=== PATIENT | male | born 1935 | race Caucasian/White ===

== ENCOUNTER 2016-10-03 13:27 | Outpatient (CLI) | payer MEDICARE ==
[2016-10-03 14:02] LABS: Bilirubin Negative (Negative); Blood, Urine Trace (Negative); Glucose, Urine (Dipstick) Negative (Negative); Ketone, Urine Negative (Negative); Nitrite Negative (Negative); Protein, Urine (Dipstick) Negative (Neg-Trace); Urobilinogen 0.2 mg/dL (0.2-1.0)
[2016-10-03 14:08] LABS: RBC/HPF 0-3 HPF (0-3)
[2016-10-03 14:09] LABS: Bacteria/HPF Rare-Few HPF (None Seen); Squamous Epithelial None Seen HPF (0-3); WBC/HPF 0-3 HPF (0-3)
== END 2016-10-03 13:28 | disposition home or self-care (01) ==
LOC: NAVSJIPCSP 13:27
PROVIDERS: ATTEND Internal Medicine
DX: N30.00 Acute cystitis without hematuria (principal)
CPT/HCPCS: 81003; 81015; 87086

== ENCOUNTER 2016-10-04 18:28 | Inpatient (IN) | payer MEDICARE ==
[2016-10-04 19:37] LABS: #Basophils 0.1 thou/uL (0.0-0.2); #Lymphocytes 1.1 thou/uL (1.20-3.40); #Monocytes 0.7 thou/uL (0.11-0.59); #Neutrophils 6.7 thou/uL (1.40-6.50); %Basophils 0.7 % (0.0-1.0); %Eosinophils 0.3 % (0.0-10.0); %Lymphocytes 12.3 % (21.0-51.0); %Monocytes 7.6 % (0.0-10.0); Hematocrit 44.3 % (42.0-52.0); Mean Platelet Volume 6.8 fL (7.4-10.4); Red Blood Cell (RBC) Count 4.45 mill/uL (4.70-6.10); White Blood Cell (WBC) Count 8.5 thou/uL (4.8-10.8)
[2016-10-04] MEDS ORDERED: Sodium Chloride 0.9% 500 ML ONE ×2 (19:48→20:51)
[2016-10-04] MEDS ORDERED: Acetaminophen 500 MG TAB ONE (19:48)
[2016-10-04 19:53] LABS: ALT (SGPT) 18 U/L (0-55); AST (SGOT) 20 U/L (5-34); Alkaline Phosphatase 47 U/L (40-150); Anion Gap 13 mmol/L (10-20); BUN (Urea Nitrogen) 27 mg/dL (8.4-25.7); CK (CPK) 139 U/L (30-200); Calc. Creatinine Clearance 0 mL/min (70-130); Calcium 9.1 mg/dL (7.8-10.44); Carbon Dioxide 22 mmol/L (23-31); Chloride 107 mmol/L (98-107); Estimated GFR-MDRD 43; Globulin 3.3 g/dL (2.4-3.5); Lipase 13 U/L (8-78); Protein, Total 7.4 g/dL (5.8-8.1); Troponin I 0.032 ng/mL (< 0.028)
[2016-10-04 20:36] LABS: Bilirubin Negative (Negative); Blood, Urine Trace (Negative); Glucose, Urine (Dipstick) Negative (Negative); Ketone, Urine Trace mg/dL (Negative); Nitrite Negative (Negative); Protein, Urine (Dipstick) Negative (Neg-Trace); Urobilinogen 0.2 mg/dL (0.2-1.0)
[2016-10-04 20:45] LABS: RBC/HPF 0-3 HPF (0-3); Squamous Epithelial 0-3 HPF (0-3)
--- NOTE | 2016-10-04 20:58 | RAD ---
SINGLE VIEW OF THE CHEST: COMPARISON: 04/23/2014 HISTORY: Generalized weakness that began yesterday and fever. FINDINGS: Single view of the chest shows a normal sized cardiomediastinal silhouette. There is no evidence of consolidation, mass, or pleural effusion. The bones are unremarkable. IMPRESSION: No evidence of acute cardiopulmonary disease. POS: [facility]
[2016-10-04] MEDS ORDERED: cefTRIAXone\\ROCEPHIN 1 GM VIAL ONE (21:14)
[2016-10-04] MEDS ORDERED: Sodium Chloride 0.9% 0 ML ONE (21:14)
[2016-10-04] MEDS ORDERED: Sodium Chloride 0.9% 100 ML ONE (21:15)
[2016-10-04] MEDS ORDERED: Sodium Chloride 0.9% 1,000 ML IV SCH (22:00)
--- NOTE | 2016-10-04 22:32 | ERRECORD ---
[facility] EMERGENCY RECORD HPI WEAK-DIZZY (19:01 JL) CHIEF COMPLAINT: Patient presents for evaluation of weakness, Patient presents for evaluation of PT with generalized weakness starting yesterday. Normally able to 'shuffle around' per family but unable to get out of bed today. Pt reports some dizziness earlier that resolved. HISTORIAN: History provided by patient. LOCATION: Symptoms are generalized. QUALITY: Symptoms described as, generalized weakness, Patient is alert and oriented to person, place and time, [place] coma score is 15, Pt did have trouble remembering the day of the week which family thought might be new. TIME COURSE: Patient unable to describe onset of symptoms, Symptoms are worsening, are constant. ASSOCIATED WITH: No associated chest pain, Associated with chills, Associated with fever, Measured maximum temperature 101 to 101.9 degrees, No associated headache, No associated nausea, No associated vomiting, No associated upper respiratory infection. EXACERBATED BY: Patient's condition exacerbated by nothing. RELIEVED BY: Patient's condition relieved by nothing, Patient's condition relieved by nothing because patient has not tried anything for relief. ROS (19:04 JL) CONSTITUTIONAL: Historian reports chills, reports fever. EYES: Historian denies eye pain, denies eye redness, denies eye discharge. ENT: Historian reports rhinorrhea, denies sore throat. CARDIOVASCULAR: Historian denies chest pain. RESPIRATORY: Historian denies shortness of breath, denies sputum. minimal cough today. GI: Historian denies abdominal pain, denies diarrhea, denies nausea, denies vomiting. GENITOURINARY MALE: Historian denies dysuria, denies hematuria. MUSCULOSKELETAL: Historian denies back pain, denies neck pain. SKIN: Historian denies rash, denies skin changes. NEUROLOGIC: Historian denies dizziness, denies headache, denies paralysis, denies paresthesias, denies sensory changes. PAST MEDICAL HISTORY MEDICAL HISTORY: Notes: DAUGHTER BROUGHT IN BECAUSE OF " FEVER 101 AND FEELS DIZZY" REPORTS WEAKNESS, DIFFICULTY AMBULATING INDEPENDENTLY WHICH IS NORM., Flu vaccine up to date, Tetanus immunization up to date, Pneumococcal vaccine up to date, Past medical history includes cardiac history, congestive heart failure, Past medical history includes history of hypertension, which has been treated, Past medical history includes neurological disease, Parkinson's disease, possibly but not under medication for it. (diagnosis was inconclusive 1 year ago). (18:51 BDON) &a-1R&a+25V*p+0X*[id number]*c202B*c15G*c2P*p-0X&a-25V&a+1R Name: Sumeet Singleton : 1935 M81 MedRec: [id number] AcctNum: [id number] Prepared: SunOct 04, 2016 22:34 by Interface Page 1 of 4 pMD [facility] EMERGENCY RECORD MALE SURGICAL HISTORY: Patient has no surgical history. (18:51 BDON) PSYCHIATRIC HISTORY: Notes: NO PSYCHIATRIC HISTORY. (18:51 BDON) SOCIAL HISTORY: Patient denies alcohol use, Patient denies drug use, Patient has no smoking history, Lives at home. (18:51 BDON) NOTES: Nursing records reviewed, Agree with nursing records. (19:05 [facility]) KNOWN ALLERGIES No Known Drug Allergies CURRENT MEDICATIONS (19:16 [facility]) Xarelto: TABLET : Strength - 15 mg : ORAL Patient Dose: once a day. meTOPROLOL tartrate: TABLET : Strength - 25 mg : ORAL Patient Dose: 2 times a day. simvastatin: TABLET : Strength - 20 mg : ORAL Patient Dose: once a day. digoxin: TABLET : Strength - 125 mcg : ORAL Patient Dose: once a day. Azilect: TABLET : Strength - 1 mg : ORAL Patient Dose: once a day. VITAL SIGNS VITAL SIGNS: BP: `139/77 (Lying), Pulse: 103 (Irregular), Resp: 18 (Non-Labored), Temp: 99.3 (Axillary), Pain: 0, O2 sat: 97 on Room Air, Time: 10/04/2016 18:37. (18:37 BDON) Temp: 101.2 (Rectal), Time: 10/04/2016 19:06. (19:06 JNOL) BP: 99/56, Pulse: 96, Resp: 20, O2 sat: 98 on Room Air, Time: 10/04/2016 20:30. (20:30 KASA) BP: 103/53, Pulse: 96, O2 sat: 96 on Room Air, Time: 10/04/2016 21:00. (21:00 KASA) BP: 127/51, Pulse: 115, Resp: 21, O2 sat: 97 on Room Air, Time: 10/04/2016 20:01. (20:01 KASA) BP: 103/53, Pulse: 96, Resp: 15, Temp: 99.3 (Oral), Pain: 0, O2 sat: 96 on Room Air, Time: 10/04/2016 21:00. (21:00 KASA) PHYSICAL EXAM (19:04 [facility]) CONSTITUTIONAL: Vital signs reviewed, Patient appears non toxic, Patient alert and oriented to person, place and time. EYES: Eye exam included findings of eyelids normal to inspection, Pupils equally round and reactive to light, Conjunctiva normal. ENT: Pharynx exam normal, Uvula exam normal, Tonsil exam normal, &a-1R&a+25V*p+0X*[id number]*c202B*c15G*c2P*p-0X&a-25V&a+1R Name: Sumeet Singleton : 1935 M81 MedRec: [id number] AcctNum: [id number] Prepared: SunOct 04, 2016 22:34 by Interface Page 2 of 4 pMD [facility] EMERGENCY RECORD Mouth exam normal, mucous membranes moist. NECK: Neck exam included findings of normal range of motion, Trachea midline, no cervical adenopathy. RESPIRATORY CHEST: Respiratory exam included findings of no respiratory distress, Breath sounds clear, No wheezing, No rales, No rhonchi, Chest exam included findings of chest movement symmetrical. CARDIOVASCULAR: Cardiovascular exam included findings of, rate tachycardic, rhythm regular, Heart sounds normal. ABDOMEN MALE: Abdominal exam included findings of abdomen nontender, Bowel sounds normal. BACK: Back exam included findings of normal inspection. UPPER EXTREMITY: Upper extremity exam included findings of inspection normal, Radial pulse normal, no cyanosis, no clubbing, no edema. LOWER EXTREMITY: Lower extremity exam included findings of inspection normal, no edema, no calf tenderness. NEURO: John coma scale 15, Neuro exam findings include patient oriented to person, place and time, Speech normal. SKIN: Skin exam included findings of skin warm, dry, and normal in color, no rash. PSYCHIATRIC: Normal affect. MEDICATION ADMINISTRATION SUMMARY Drug Name: *sodium chloride 0.9 % intravenous, Dose Ordered: 500 mL, Route: IV Fluid Infusion, Status: Given, Time: 20:52 10/04/2016, Drug Name: *sodium chloride 0.9 % intravenous, Dose Ordered: 500 mL, Route: IV Fluid Infusion, Status: Given, Time: 19:50 10/04/2016, Drug Name: acetaminophen oral, Dose Ordered: 1000 mg, Route: Oral, Status: Given, Time: 19:49 10/04/2016, *Additional information available in notes, Detailed record available in Medication Service section. PROBLEM LIST No recorded problems DIAGNOSIS (22:19 KAREN) FINAL: PRIMARY: Fever, ADDITIONAL: DEHYDRATION. PRESCRIPTION No recorded prescriptions DISPOSITION PATIENT: Disposition Type: Admit, Disposition: [facility]. (22:19 KAREN) Patient left the department. (22:28 SHERLY) [place]: ANDREW=KENN Vega, Arely JONES=MD Pedro, Gatito DAS=KENN Sheffield, Rabia &a-1R&a+25V*p+0X*[id number]*c202B*c15G*c2P*p-0X&a-25V&a+1R Name: Sumeet Singleton : 1935 M81 MedRec: [id number] AcctNum: [id number] Prepared: SunOct 04, 2016 22:34 by Interface Page 3 of 4 pMD [facility] EMERGENCY RECORD MYESHA=KENN Anderson, Adina DUBOIS=KENN Patel, Todd &a-1R&a+25V*p+0X*[id number]*c202B*c15G*c2P*p-0X&a-25V&a+1R Name: Sumeet Singleton : 1935 M81 MedRec: [id number] AcctNum: [id number] Prepared: SunOct 04, 2016 22:34 by Interface Page 4 of 4 pMD MTDD
--- NOTE | 2016-10-04 22:36 | PICIS ---
[facility] EMERGENCY RECORD TRIAGE (18:51 BDON) PATIENT: NAME: Sumeet Singleton, AGE: 81, GENDER: male, : Sat 1935, TIME OF GREET: SunOct 04, 2016 18:29, PREFERRED LANGUAGE: Irish, RACE: WHITE, ETHNICITY: Not or , ECODE BILLING MAP: [facility] ER, SSN: [id number], Zip Code: [address], KG WEIGHT: 83.91 (est.), HEIGHT/LENGTH: 182.88cm, BMI: 25.09, PHONE: , , , PERSON ID: [id number], PCP: Hebert DAVIDSON LUKE. (18:51 BDON) TRIAGE NOTES: alert but sluggish male patient presents with fever and "feel bad" since yesterday afternoon. (18:51 BDON) COMPLAINT: FEVER. (18:51 BDON) ADMISSION: URGENCY: 3 Urgent, ADMISSION SOURCE: Home, TRANSPORT: CAR, BED: ER -04. (18:51 BDON) ASSESSMENT: Assessment: pt. presents requiring assistance to ambulance and to stretcher. Is cooperative but reports feeling "bad" and weak., Symptoms began 10/03/2016 18:44, Symptoms began yesterday. (18:51 BDON) PAIN: Location denies pain. (18:51 BDON) IMMUNIZATIONS: Flu vaccine up to date, Date of immunization: current, Tetanus immunization up to date, Date of immunization: current, Pneumococcal vaccine up to date. (18:51 BDON) SIRS SCORING: Heart Rate 110-139 (2), Temp range 96.8-101.1 (0), respiratory rate 12-24 (0), Latest WBC 3-14.9 (0), Mental Status altered: no (0), Total SIRS Score 2, Infection or Suspected Infection: No, was at Dr. Davidson's office yesterday for same. Suspected UTI but UA was negative. (18:51 BDON) PROVIDERS: TRIAGE NURSE: Arely Vega RN, ATTENDING PHYSICIAN: Gatito Vasquez MD. (18:51 BDON) VITAL SIGNS: BP `139/77, (Lying), Pulse 103, (Irregular), Resp 18, (Non-Labored), Temp 99.3, (Axillary), Pain 0, O2 Sat 97, on Room Air, Time 10/04/2016 18:37. (18:37 BDON) PREVIOUS VISIT ALLERGIES: No Known Drug Allergies. (18:51 BDON) KNOWN ALLERGIES No Known Drug Allergies CURRENT MEDICATIONS (19:16 LEE) Xarelto: TABLET : Strength - 15 mg : ORAL Patient Dose: once a day. meTOPROLOL tartrate: TABLET : Strength - 25 mg : ORAL Patient Dose: 2 times a day. simvastatin: TABLET : Strength - 20 mg : ORAL Patient Dose: once a day. digoxin: TABLET : Strength - 125 mcg : ORAL Patient Dose: once a day. &a-1R&a+25V*p+0X*k7610N*c202B*c15G*c2P*p-0X&a-25V&a+1R Name: Sumeet Singleton : 1935 M81 MedRec: [id number] AcctNum: [id number] Prepared: SunOct 04, 2016 22:40 by Interface Page 1 of 12 pMD [facility] EMERGENCY RECORD Azilect: TABLET : Strength - 1 mg : ORAL Patient Dose: once a day. VITAL SIGNS VITAL SIGNS: BP: `139/77 (Lying), Pulse: 103 (Irregular), Resp: 18 (Non-Labored), Temp: 99.3 (Axillary), Pain: 0, O2 sat: 97 on Room Air, Time: 10/04/2016 18:37. (18:37 BDON) Temp: 101.2 (Rectal), Time: 10/04/2016 19:06. (19:06 JNOL) BP: 99/56, Pulse: 96, Resp: 20, O2 sat: 98 on Room Air, Time: 10/04/2016 20:30. (20:30 KASA) BP: 103/53, Pulse: 96, O2 sat: 96 on Room Air, Time: 10/04/2016 21:00. (21:00 KASA) BP: 127/51, Pulse: 115, Resp: 21, O2 sat: 97 on Room Air, Time: 10/04/2016 20:01. (20:01 KASA) BP: 103/53, Pulse: 96, Resp: 15, Temp: 99.3 (Oral), Pain: 0, O2 sat: 96 on Room Air, Time: 10/04/2016 21:00. (21:00 KASA) NURSING ASSESSMENT: FALL RISK (21:02 KASA) FALL RISK: Use of level of consciousness altering agents with mentation or cognitive changes (3), Sensory deficits (1), Impaired mobility (3), Elimination problems (3), Total score 10, Fall risk. NURSING ASSESSMENT: RESPIRATORY /CHEST (18:53 JNOL) CONSTITUTIONAL: Patient arrives, via hospital wheelchair, Unsteady gait, Inability to ambulate, History obtained from, family member: daughter, Patient appears, generally ill, Patient cooperative, Patient alert, Oriented to person, place and time, Skin warm, Skin dry, Skin normal in color, Mucous membranes pink, Mucous membranes moist, Patient is well-groomed. PAIN: Patient rates pain as 0 out of 10. RESPIRATORY/CHEST: Breath sounds clear, Respiratory assessment findings include respiratory effort easy, Respirations regular, Conversing normally, Neck and chest exam findings include trachea midline, Chest expansion equal, Chest movement symmetrical, no signs of distress, no retractions noted, no cyanosis, no jugular vein distension, no tenderness to palpation, no crepitus noted, no subcutaneous emphysema noted, no deformity noted, Associated with cough, non-productive, Associated with fever, no associated fume exposure. ENT: Ear assessment findings include ear normal to inspection, Nasal assessment findings include nose normal to inspection, Sinuses normal, Nasal mucosa normal, Discharge, thin, from bilateral nare, Congestion, bilaterally, Mouth and throat assessment findings include mouth inspection normal, Uvula normal, Tonsils normal, Mucous membranes pink, and moist, Able to swallow, Speech normal, Associated with fever. &a-1R&a+25V*p+0X*k7963C*c202B*c15G*c2P*p-0X&a-25V&a+1R Name: Sumeet Singleton : 1935 M81 MedRec: [id number] AcctNum: [id number] Prepared: SunOct 04, 2016 22:40 by Interface Page 2 of 12 pMD [facility] EMERGENCY RECORD NURSING ASSESSMENT: SKIN (18:55 JNOL) SKIN: Skin assessment findings include skin warm, Skin dry, Skin normal in color, Notes: Redness with peeling skin noted to sacaral area. NURSING PROCEDURE: BEDSIDE RADIOLOGY (19:08 KHER) PATIENT IDENTIFIER: Patient actively involved in identification process. BEDSIDE RADIOLOGY: Bedside radiology performed by CRISTIAN, Portable chest x-ray performed. NURSING PROCEDURE: BEDSIDE SIRS TESTING (21:01 KASA) SCORES: Heart Rate 55-109 (0), Temp range 101.2-102.0 (1), respiratory rate 12-24 (0), Latest WBC 3-14.9 (0), Mental status altered: yes (1), Total SIRS Score 2. NURSING PROCEDURE: BROADCASTER (18:55 JNOL) BROADCASTER: Patient placed on cardiac surgeon, Patient placed on non-invasive blood pressure monitor, Patient placed on continuous pulse oximetry. NURSING PROCEDURE: EKG CHART (19:01 JNOL) EK lead EKG performed on the left chest, done by KENN Oconnor, first EKG. FOLLOW-UP: After procedure, EKG for interpretation given to Dr. Vasquez. NURSING PROCEDURE: ENT (20:00 KASA) PATIENT IDENTIFIER: Patient actively involved in identification process, Patient's identity verified by patient stating name, Patient's identity verified by patient stating date. ENT: ENT care indicated for specimen collection, Nasal swab collected, labeled in the presence of the patient and sent to lab for testing of, influenza A, influenza B, collected by KENN Holden. FOLLOW-UP: After procedure, no further bleeding from nose. SAFETY: Side rails up, Cart/Stretcher in lowest position, Call light within reach, Hospital ID band on. NURSING PROCEDURE: IV PATIENT IDENITIFIER: Patient actively involved in identification process, Patient's identity verified by patient stating name, Patient's identity verified by patient stating date. (19:17 KASA) IV SITE 1: IV established, in two attempts, Unable to obtain IV access. (18:55 JNOL) IV therapy indicated for hydration, IV therapy indicated for medication administration, IV established, to the right antecubital, using a 20 gauge catheter, in one attempt, IV site prepped with chloraprep, &a-1R&a+25V*p+0X*c8258E*c202B*c15G*c2P*p-0X&a-25V&a+1R Name: Sumeet Singleton : 1935 M81 MedRec: [id number] AcctNum: [id number] Prepared: SunOct 04, 2016 22:40 by Interface Page 3 of 12 pMD [facility] EMERGENCY RECORD Saline lock established, Flushed with normal saline (mls): 10, Labs drawn at time of placement, labeled in the presence of the patient and sent to lab, Blood cultures drawn at time of placement, labeled in the presence of the patient and sent to lab. (19:17 KASA) FOLLOW-UP SITE 1: After procedure, sterile transparent dressing applied. (19:17 KASA) SAFETY: Side rails up, Cart/Stretcher in lowest position, Family at bedside, Call light within reach, Hospital ID band on. (19:17 KASA) NURSING PROCEDURE: LAB DRAW (19:38 KASA) PATIENT IDENTIFIER: Patient actively involved in identification process, Patient's identity verified by patient stating name, Patient's identity verified by patient stating date. LAB DRAW: Lab draw indicated for obtaining specimens for evaluation, Initial lab draw performed, by venipuncture, from left hand, in one attempt, Blood cultures labeled in the presence of the patient and sent to lab. FOLLOW-UP: After procedure, dressing applied to site, After procedure, no swelling at site, After procedure, no active bleeding from site. SAFETY: Side rails up, Cart/Stretcher in lowest position, Family at bedside, Call light within reach, Hospital ID band on. NURSING PROCEDURE: NURSE NOTES NURSES NOTES: Notes: ERMD at bedside. (18:55 JNOL) Notes: Report given to KENN Holden. Patient on cardiac surgeon, left in position of comfort. Patient's daughter outside of room on phone. (19:04 JNOL) NURSING PROCEDURE: URINE COLLECTION (20:09 KASA) PATIENT IDENTIFIER: Patient actively involved in identification process, Patient's identity verified by patient stating name, Patient's identity verified by patient stating date. URINE COLLECTION MALE: Urine collected by void, output amount (mL) 100, urine yellow in color, and clear, Specimen labeled in the presence of the patient and sent to lab, Specimen obtained for culture labeled in the presence of the patient and sent to lab. SAFETY: Side rails up, Cart/Stretcher in lowest position, Call light within reach, Hospital ID band on. ORDER DETAILS Order Name: BROADCASTER ED, Status: Done, Time: 19:04 10/04/2016, User: PIPPA, - Ordered for: MD Vasquez Joshua, - Entered by: MD Vasquez Joshua - SunOct 04, 2016 19:01, - Quantity: 1, Order Name: Cardiac Profile w/CKMB & Troponin - I, Status: Active, Time: 19:10/04/2016, User: KAREN, &a-1R&a+25V*p+0X*s4117Y*c202B*c15G*c2P*p-0X&a-25V&a+1R Name: Sumeet Singleton : 1935 M81 MedRec: [id number] AcctNum: [id number] Prepared: SunOct 04, 2016 22:40 by Interface Page 4 of 12 [facility] EMERGENCY RECORD - Ordered for: MD Vasquez Joshua, - Entered by: MD Vasquez Joshua - SunOct 04, 2016 19:01, - Quantity: 1, Order Name: CBC with Differential, Status: Active, Time: 19:10/04/2016, User: KAREN, - Ordered for: MD Vasquez Joshua, - Entered by: MD Vasquez Joshua - SunOct 04, 2016 19:01, - Quantity: 1, Order Name: CK (CPK), Status: Active, Time: 19:10/04/2016, User: KAREN, - Ordered for: MD Vasquez Joshua, - Entered by: MD Vasquez Joshua - SunOct 04, 2016 19:01, - Quantity: 1, Order Name: Comprehensive Metabolic Panel, Status: Active, Time: 19:10/04/2016, User: KAREN, - Ordered for: MD Vasquez Joshua, - Entered by: MD Vasquez Joshua - SunOct 04, 2016 19:01, - Quantity: 1, Order Name: Culture, Blood, Status: Active, Time: 19:01 10/04/2016, User: KAREN, - Ordered for: MD Vasquez Joshua, - Entered by: MD Vasquez Joshua - [facility] Oct 04, 2016 19:01, - Quantity: 1, Order Name: EKG 12 Lead in Emergency Room, Status: Active, Time: 19:01 10/04/2016, User: KAREN, - Ordered for: MD Vasquez Joshua, - Entered by: MD Vasquez Joshua - [facility] Oct 04, 2016 19:01, - Quantity: 1, Order Name: Influenza A&B Ag Screen, Status: Active, Time: 19:01 10/04/2016, User: KAREN, - Ordered for: MD Vasquez Joshua, - Entered by: MD Vasquez Joshua - [facility] Oct 04, 2016 19:01, - Quantity: 1, Order Name: Lipase, Status: Active, Time: 19:01 10/04/2016, User: KAREN, - Ordered for: MD Vasquez Joshua, - Entered by: MD Vasquez Joshua - [facility] Oct 04, 2016 19:01, - Quantity: 1, Order Name: SALINE LOCK, Status: Done, Time: 19:56 10/04/2016, User: MYESHA, - Ordered for: MD Vasquez Joshua, - Entered by: MD Vasquez Joshua - [facility] Oct 04, 2016 19:01, - Quantity: 1, Order Name: Urinalysis with Microscopic, Status: Active, Time: 19:01 10/04/2016, User: KAREN, - Ordered for: MD Vasquez Joshua, - Entered by: MD Vasquez Joshua - [facility] Oct 04, 2016 19:01, - Quantity: 1, Order Name: XR Chest 1 View Portable, Status: Active, Time: 19:10/04/2016, User: KAREN, - Ordered for: MD Vasquez Joshua, &a-1R&a+25V*p+0X*g7288K*c202B*c15G*c2P*p-0X&a-25V&a+1R Name: Sumeet Singleton : 1935 M81 MedRec: [id number] AcctNum: [id number] Prepared: SunOct 04, 2016 22:40 by Interface Page 5 of 12 pMD [facility] EMERGENCY RECORD - Entered by: MD Vasquez Joshua - SunOct 04, 2016 19:01, - Quantity: 1. MEDICATION ADMINISTRATION SUMMARY Drug Name: *sodium chloride 0.9 % intravenous, Dose Ordered: 500 mL, Route: IV Fluid Infusion, Status: Given, Time: 20:52 10/04/2016, Drug Name: *sodium chloride 0.9 % intravenous, Dose Ordered: 500 mL, Route: IV Fluid Infusion, Status: Given, Time: 19:50 10/04/2016, Drug Name: acetaminophen oral, Dose Ordered: 1000 mg, Route: Oral, Status: Given, Time: 19:49 10/04/2016, *Additional information available in notes, Detailed record available in Medication Service section. MEDICATION SERVICE acetaminophen oral: Order: acetaminophen oral (acetaminophen) - Dose: 1000 mg : Oral Ordered by: Gatito Vasquez MD Entered by: Gatito Vasquez MD SunOct 04, 2016 19:07 , Acknowledged by: Adina Anderson RN SunOct 04, 2016 19:47 Documented as given by: Adina Anderson RN SunOct 04, 2016 19:49 Patient, Medication, Dose, Route and Time verified prior to administration. Amount given: 1000 mg, Site: Medication administered P.O., Correct patient, time, route, dose and medication confirmed prior to administration, Patient advised of actions and side-effects prior to administration, Allergies confirmed and medications reviewed prior to administration, Patient in position of comfort, Side rails up, Cart in lowest position, Family at bedside. sodium chloride 0.9 % intravenous: Order: sodium chloride 0.9 % intravenous (0.9 % sodium chloride) - Dose: 500 mL : IV Fluid Infusion Notes: (Bolus) Ordered by: Gatito Vasquez MD Entered by: Gatito Vasquez MD SunOct 04, 2016 19:01 , Acknowledged by: Adina Anderson RN SunOct 04, 2016 19:47 Documented as given by: Adina Anderson RN SunOct 04, 2016 19:50 Patient, Medication, Dose, Route and Time verified prior to administration. Amount given: 500 ml, Catheter placement confirmed via flush prior to administration, IV site without signs or symptoms of infiltration during medication administration, No swelling during administration, No drainage during administration, IV flushed after administration, Correct patient, time, route, dose and medication confirmed prior to administration, Patient advised of actions and side-effects prior to administration, Allergies confirmed and medications reviewed prior to administration, Patient in position of comfort, Side rails up, Cart in lowest position, Family at bedside. : Follow Up : No signs or symptoms of allergic reaction noted, _IV SITE #1:_, IV fluid infusion discontinued, on SunOct 04, 2016 &a-1R&a+25V*p+0X*h1281J*c202B*c15G*c2P*p-0X&a-25V&a+1R Name: Sumeet Singleton : 1935 M81 MedRec: [id number] AcctNum: [id number] Prepared: SunOct 04, 2016 22:40 by Interface Page 6 of 12 pMD [facility] EMERGENCY RECORD 20:20, 30 minutes, ., Total amount infused: 500 ml, Advised not to ambulate without assistance, Patient in position of comfort, Side rails up, Cart in lowest position, Family at bedside. (20:20 KASA) sodium chloride 0.9 % intravenous: Order: sodium chloride 0.9 % intravenous (0.9 % sodium chloride) - Dose: 500 mL : IV Fluid Infusion Notes: (Bolus) Ordered by: Gatito Vasquez MD Entered by: Gatito Vasquez MD SunOct 04, 2016 20:51 , Acknowledged by: Adina Anderson RN SunOct 04, 2016 20:52 Documented as given by: Adina Anderson RN SunOct 04, 2016 20:52 Patient, Medication, Dose, Route and Time verified prior to administration. Amount given: 500 ml, Catheter placement confirmed via flush prior to administration, IV site without signs or symptoms of infiltration during medication administration, No swelling during administration, No drainage during administration, IV flushed after administration, Correct patient, time, route, dose and medication confirmed prior to administration, Patient advised of actions and side-effects prior to administration, Allergies confirmed and medications reviewed prior to administration, Patient in position of comfort, Side rails up, Cart in lowest position, Family at bedside. : Follow Up : No signs or symptoms of allergic reaction noted, _IV SITE #1:_, IV fluid infusion discontinued, on SunOct 04, 2016 21:30, 40 minutes, ., Total amount infused: 500 ml, Advised not to ambulate without assistance, Patient in position of comfort, Side rails up, Cart in lowest position, Family at bedside. (21:30 KASA) HPI WEAK-DIZZY (19:01 [facility]) CHIEF COMPLAINT: Patient presents for evaluation of weakness, Patient presents for evaluation of PT with generalized weakness starting yesterday. Normally able to 'shuffle around' per family but unable to get out of bed today. Pt reports some dizziness earlier that resolved. HISTORIAN: History provided by patient. LOCATION: Symptoms are generalized. QUALITY: Symptoms described as, generalized weakness, Patient is alert and oriented to person, place and time, John coma score is 15, Pt did have trouble remembering the day of the week which family thought might be new. TIME COURSE: Patient unable to describe onset of symptoms, Symptoms are worsening, are constant. ASSOCIATED WITH: No associated chest pain, Associated with chills, Associated with fever, Measured maximum temperature 101 to 101.9 degrees, No associated headache, No associated nausea, No associated vomiting, No associated upper respiratory infection. EXACERBATED BY: Patient's condition exacerbated by nothing. RELIEVED BY: Patient's condition relieved by &a-1R&a+25V*p+0X*q7767Y*c202B*c15G*c2P*p-0X&a-25V&a+1R Name: Sumeet Singleton : 1935 M81 MedRec: [id number] AcctNum: [id number] Prepared: SunOct 04, 2016 22:40 by Interface Page 7 of 12 pMD [facility] EMERGENCY RECORD nothing, Patient's condition relieved by nothing because patient has not tried anything for relief. ROS (19:04 [facility]) CONSTITUTIONAL: Historian reports chills, reports fever. EYES: Historian denies eye pain, denies eye redness, denies eye discharge. ENT: Historian reports rhinorrhea, denies sore throat. CARDIOVASCULAR: Historian denies chest pain. RESPIRATORY: Historian denies shortness of breath, denies sputum. minimal cough today. GI: Historian denies abdominal pain, denies diarrhea, denies nausea, denies vomiting. GENITOURINARY MALE: Historian denies dysuria, denies hematuria. MUSCULOSKELETAL: Historian denies back pain, denies neck pain. SKIN: Historian denies rash, denies skin changes. NEUROLOGIC: Historian denies dizziness, denies headache, denies paralysis, denies paresthesias, denies sensory changes. PAST MEDICAL HISTORY MEDICAL HISTORY: Notes: DAUGHTER BROUGHT IN BECAUSE OF " FEVER 101 AND FEELS DIZZY" REPORTS WEAKNESS, DIFFICULTY AMBULATING INDEPENDENTLY WHICH IS NORM., Flu vaccine up to date, Tetanus immunization up to date, Pneumococcal vaccine up to date, Past medical history includes cardiac history, congestive heart failure, Past medical history includes history of hypertension, which has been treated, Past medical history includes neurological disease, Parkinson's disease, possibly but not under medication for it. (diagnosis was inconclusive 1 year ago). (18:51 BDON) MALE SURGICAL HISTORY: Patient has no surgical history. (18:51 BDON) PSYCHIATRIC HISTORY: Notes: NO PSYCHIATRIC HISTORY. (18:51 BDON) SOCIAL HISTORY: Patient denies alcohol use, Patient denies drug use, Patient has no smoking history, Lives at home. (18:51 BDON) NOTES: Nursing records reviewed, Agree with nursing records. (19:05 JLOY) PHYSICAL EXAM (19:04 JLOY) CONSTITUTIONAL: Vital signs reviewed, Patient appears non toxic, Patient alert and oriented to person, place and time. EYES: Eye exam included findings of eyelids normal to inspection, Pupils equally round and reactive to light, Conjunctiva normal. ENT: Pharynx exam normal, Uvula exam normal, Tonsil exam normal, Mouth exam normal, mucous membranes moist. NECK: Neck exam included findings of normal range of motion, Trachea midline, no cervical adenopathy. RESPIRATORY CHEST: Respiratory exam included findings of no &a-1R&a+25V*p+0X*j1031Q*c202B*c15G*c2P*p-0X&a-25V&a+1R Name: Sumeet Singleton : 1935 M81 MedRec: [id number] AcctNum: [id number] Prepared: SunOct 04, 2016 22:40 by Interface Page 8 of 12 pMD [facility] EMERGENCY RECORD respiratory distress, Breath sounds clear, No wheezing, No rales, No rhonchi, Chest exam included findings of chest movement symmetrical. CARDIOVASCULAR: Cardiovascular exam included findings of, rate tachycardic, rhythm regular, Heart sounds normal. ABDOMEN MALE: Abdominal exam included findings of abdomen nontender, Bowel sounds normal. BACK: Back exam included findings of normal inspection. UPPER EXTREMITY: Upper extremity exam included findings of inspection normal, Radial pulse normal, no cyanosis, no clubbing, no edema. LOWER EXTREMITY: Lower extremity exam included findings of inspection normal, no edema, no calf tenderness. NEURO: [place] coma scale 15, Neuro exam findings include patient oriented to person, place and time, Speech normal. SKIN: Skin exam included findings of skin warm, dry, and normal in color, no rash. PSYCHIATRIC: Normal affect. EVENTS TRANSFER: Triage to Emergency Emergency Room -04. (SunOct 04, 2016 18:51 BDON) Removed from Emergency Emergency Room -04. (22:28 [facility]) PROBLEM LIST No recorded problems DIAGNOSIS (22:19 JL) FINAL: PRIMARY: Fever, ADDITIONAL: DEHYDRATION. DISPOSITION PATIENT: Disposition Type: Admit, Disposition: [facility]. (22:19 [facility]) Patient left the department. (22:28 [facility]) PRESCRIPTION No recorded prescriptions IMAGING (21:40 KASA) *EKG: Image captured from scanner. TRANSITIONAL ORDERS: Image captured from scanner. ADMIN (22:19 [facility]) DIGITAL SIGNATURE: MD Pedro, Gatito. RESULTS RADIOLOGY: XR Chest 1 View Portable Observe DT: SunOct 04, 2016 19:03, CXRP &a-1R&a+25V*p+0X*b7940T*c202B*c15G*c2P*p-0X&a-25V&a+1R Name: Sumeet Singleton : 1935 M81 MedRec: [id number] AcctNum: [id number] Prepared: SunOct 04, 2016 22:40 by Interface Page 9 of 12 pMD [facility] EMERGENCY RECORD SINGLE VIEW OF THE CHEST: COMPARISON: 04/23/2014 HISTORY: Generalized weakness that began yesterday and fever. FINDINGS: Single view of the chest shows a normal sized cardiomediastinal silhouette. There is no evidence of consolidation, mass, or pleural effusion. The bones are unremarkable. IMPRESSION: No evidence of acute cardiopulmonary disease. POS: [facility] . (21:40 [facility]) LABORATORY: Urinalysis with Microscopic Collection DT: SunOct 04, 2016 20:38, Color Yellow , Range (Yellow), Clarity Clear , Range (Clear), Specific [place], Urine 1.020 , Range (1.005-1.030), pH, Urine 5.5 , Range (5.0-9.0), Leukocyte Negative , Range (Negative), Nitrite Negative , Range (Negative), Protein, Urine (Dipstick) Negative mg/dL, Range (Neg-Trace), Glucose, Urine (Dipstick) Negative mg/dL, Range (Negative), *Ketone, Urine Trace - H mg/dL, Range (Negative), Urobilinogen 0.2 mg/dL, Range (0.2-1.0), Bilirubin Negative , Range (Negative), *Blood, Urine Trace - H , Range (Negative), RBC/HPF 0-3 HPF, Range (0-3), Squamous Epithelial 0-3 HPF, Range (0-3). (21:03 [facility]) MICROBIOLOGY: Influenza A&B Ag Screen: [id number] Collection DT: SunOct 04, 2016 20:30, See comment below , @ ER ROOM#: ER-04 Source: Nasal swab Spec Desc: , Influenza A Antigen: NEGATIVE for the , presence of , INFLUENZA A Antigen , Influenza B Antigen: NEGATIVE for the , presence of , INFLUENZA B Antigen , The rapid Flu A&B test can distinguish between influenza A , Influenza A&B Ag Screen See comment below , and B viruses, but it does not differentiate influenza , Influenza A&B Ag Screen See comment below , subtypes. , Influenza A&B Ag Screen See comment below , &a-1R&a+25V*p+0X*s1153S*c202B*c15G*c2P*p-0X&a-25V&a+1R Name: Sumeet Singleton : 1935 M81 MedRec: [id number] AcctNum: [id number] Prepared: SunOct 04, 2016 22:40 by Interface Page 10 of 12 pMD [facility] [facility] Influenza A&B Ag Screen See comment below , Influenza A&B Ag Screen See comment below , Influenza A&B Ag Screen See comment below , characteristics of this device with human specimens infected , Influenza A&B Ag Screen See comment below , with the 2008 H1N1 influenza virus have not been , Influenza A&B Ag Screen See comment below , established. For example: this test cannot distinguish , Influenza A&B Ag Screen See comment below , influenza infections caused by novel H1N1 influenza A , Influenza A&B Ag Screen See comment below , viruses versus seasonal influenza A viruses. , Influenza A&B Ag Screen See comment below , , Influenza A&B Ag Screen See comment below , A negative result does not exclude influenza virus , Influenza A&B Ag Screen See comment below , infection; therefore, if more conclusive testing is desired, , Influenza A&B Ag Screen See comment below , follow up confirmatory testing is warranted., Influenza A&B Ag Screen See comment below . (21:03 [facility]) LABORATORY: Cardiac Profile w/CKMB & TropI Collection DT: SunOct 04, 2016 19:30, CKMB 5.4 ng/mL, Range (0-6.6), *Troponin I 0.032 - H ng/mL, Range (< 0.028), Reference Range , 0.00 - 0.028 ng/mL Negative 0.029 - 0.29 ng/mL , Indeterminate Greater or Equal to 0.3 ng/mL Strongly suggests PR , . (21:03 [facility]) Lipase Collection DT: SunOct 04, 2016 19:30, Lipase 13 U/L, Range (8-78). (21:03 [facility]) CK (CPK) Collection DT: SunOct 04, 2016 19:30, CK (CPK) 139 U/L, Range (30-200). (21:03 [facility]) Comprehensive Metabolic Panel Collection DT: SunOct 04, 2016 19:30, Sodium 138 mmol/L, Range (136-145), Potassium 4.3 mmol/L, Range (3.5-5.1), Chloride 107 mmol/L, Range (98-107), *Carbon Dioxide 22 - L mmol/L, Range (23-31), Anion Gap 13 mmol/L, Range (10-20), *BUN (Urea Nitrogen) 27 - H mg/dL, Range (8.4-25.7), *Creatinine 1.57 - H mg/dL, Range (0.7-1.3), Estimated GFR-MDRD 43 , Reference Range for Estimated GFR: Greater than 90, mL/min/1.73 m2 NOTE: The MDRD equation has not been validated for use, with the elderly (over 70 years of age), women, patients with, serious comorbid condition or persons with extremes of body size, muscle, mass, or nutritional status. , &a-1R&a+25V*p+0X*a2133L*c202B*c15G*c2P*p-0X&a-25V&a+1R Name: Sumeet Singleton : 1935 M81 MedRec: [id number] AcctNum: [id number] Prepared: SunOct 04, 2016 22:40 by Interface Page 11 of 12 pMD [facility] EMERGENCY RECORD *Glucose 134 - H mg/dL, Range (83-110), Calcium 9.1 mg/dL, Range (7.8-10.44), *Bilirubin, Total 2.0 - H mg/dL, Range (0.2-1.2), Protein, Total 7.4 g/dL, Range (5.8-8.1), NOTE: Plasma values are generally 0.3 to 0.5 g/dL higher than serum values, due to the presence of fibrinogen. , Albumin 4.1 g/dL, Range (3.4-4.8), Globulin 3.3 g/dL, Range (2.4-3.5), Alb/Glob Ratio 1.2 g/dL, Range (1.2-2.2), Alkaline Phosphatase 47 U/L, Range (40-150), AST (SGOT) 20 U/L, Range (5-34), ALT (SGPT) 18 U/L, Range (0-55). (21:03 [facility]) CBC with Differential Collection DT: SunOct 04, 2016 19:30, White Blood Cell (WBC) Count 8.5 thou/uL, Range (4.8-10.8), *Red Blood Cell (RBC) Count 4.45 - L mill/uL, Range (4.70-6.10), Hemoglobin 14.3 g/dL, Range (14.0-18.0), Hematocrit 44.3 %, Range (42.0-52.0), *Mean Corpuscular Volume 99.4 - H fl, Range (80.0-94.0), *Mean Corpuscular Hemoglobin 32.1 - H pg, Range (27.0-31.0), Mean Corpuscular HGB CONC 32.3 g/dL, Range (32.0-36.0), RBC Distribution Width 11.9 %, Range (11.5-14.5), Platelet Count 190 thou/uL, Range (130-400), *Mean Platelet Volume 6.8 - L fL, Range (7.4-10.4), *%Neutrophils 79.0 - H %, Range (42.0-75.0), *%Lymphocytes 12.3 - L %, Range (21.0-51.0), %Monocytes 7.6 %, Range (0.0-10.0), %Eosinophils 0.3 %, Range (0.0-10.0), %Basophils 0.7 %, Range (0.0-1.0), *#Neutrophils 6.7 - H thou/uL, Range (1.40-6.50), *#Lymphocytes 1.1 - L thou/uL, Range (1.20-3.40), *#Monocytes 0.7 - H thou/uL, Range (0.11-0.59), #Eosinphils 0.0 thou/uL, Range (0.0-0.7), #Basophils 0.1 thou/uL, Range (0.0-0.2). (21:03 [facility]) Edmonds: ANDREW=KENN Vega, Arely JONES=MD Pedro, Gatito DAS=KENN Sheffield, Rabia BRUNNER=KENN Anderson, Adina RFANZ=MACHELLE Burgess Kayce LEEW=KENN Patel, Todd &a-1R&a+25V*p+0X*a3448B*c202B*c15G*c2P*p-0X&a-25V&a+1R Name: Sumeet Singleton : 1935 M81 MedRec: [id number] AcctNum: [id number] Prepared: Ovidio Oct 04, 2016 22:40 by Interface Page 12 of 12 pMD MTDD
[2016-10-05] MEDS ORDERED: Acetaminophen 650 MG Suppository PR PRN (05:30)
[2016-10-05] MEDS: Acetaminophen 325 MG TAB PO PRN ×2 (05:37→20:34)
[2016-10-05 05:38] LABS: Band 2 % (5-11); Hematocrit 37.5 % (42.0-52.0); Mean Platelet Volume 7.1 fL (7.4-10.4); Neutrophil 72 % (42-75); Red Blood Cell (RBC) Count 3.85 mill/uL (4.70-6.10); White Blood Cell (WBC) Count 5.9 thou/uL (4.8-10.8)
[2016-10-05 05:54] LABS: Anion Gap 10 mmol/L (10-20); BUN (Urea Nitrogen) 27 mg/dL (8.4-25.7); Calc. Creatinine Clearance 49 mL/min (70-130); Calcium 8.2 mg/dL (7.8-10.44); Carbon Dioxide 21 mmol/L (23-31); Chloride 113 mmol/L (98-107); Estimated GFR-MDRD 50
[2016-10-05 06:00] VITALS: BMI 24.7
[2016-10-05] MEDS ORDERED: Ondansetron ODT 4 MG TAB PO PRN (06:56)
[2016-10-05] MEDS: Famotidine 20 MG TAB PO SCH ×2 (09:03→20:33)
[2016-10-05] MEDS: Metoprolol Tartrate 25 MG TAB PO SCH ×2 (09:04→20:33)
[2016-10-05] MEDS: Digoxin 0.125 MG TAB PO SCH (09:04)
--- NOTE | 2016-10-05 12:46 | HP ---
DATE OF ADMISSION: 10/04/2016 CHIEF COMPLAINT: Weakness, decreased urination and low grade fever. HISTORY OF PRESENT ILLNESS: The patient is a very pleasant 81-year-old white male with history of i ncreased frequency of urine, dysuria, dark urine with no previous fever and chills, back pain or inc ontinence starting approximately 2 weeks ago. He was seen in the office 2 days ago had urine output within normal limits and was eating and drinking well and was felt that could be discharged home on a course fluids, it is returning in 2 days if persistent symptoms. Family called yesterday that he was becoming increasingly weaker [facility] where he was found to have again clear urine, normal white count, but was very weak and unable to ambulate and had a low grade fever of 100. It was felt that most likely he was having an episode of prostatitis, which is not responding to the Bactrim that has been started on the previous day when the family called me th erefore admitted to the hospital and started on IV Rocephin, IV fluids and monitor his renal functio n, did show that his creatinine had increased to 1.57 from a previous creatinine of 1.01 last year. His white count as mentioned above was normal at 8500 with hematocrit of 44, and hemoglobin 13. Ur inalysis in the emergency room as mentioned above was normal. He has an underlying history of atria l fibrillation with rate controlled on digoxin, anticoagulation and Xarelto with no history of decom pensated congestive heart failure or TIA or CVA and had no chest pain, and no dizzy spells prior to this episode. He also has a history of Parkinson's disease, doing fairly well on Azilect, being fol lowed by neurology with cogwheel rigidity and tremor, some mild shuffling gait, difficulty arriving from the chair, but no falling spell. Finally, he has a history of hypertension, which has been wel l controlled on medications of metoprolol 25 mg twice daily and his final medication is simvastatin 20 mg daily. He also takes carbidopa/levodopa 25/100 times daily for his Parkinson's disease. PAST MEDICAL HISTORY: Remarkable for the hypertension, atrial fibrillation, Parkinson's disease, hy perlipidemia. ALLERGIES: He has no known allergies. SOCIAL HISTORY: He lives with his disabled who has primary lateral sclerosis with very support michael family nearby. He is a nonsmoker, nondrinker. REVIEW OF SYSTEMS: HEENT: He denies any headaches, dizziness, but does state he is just very weak and rests in the bed. He has had some sweats, no chills. Pulmonary: Denies cough, sputum producti on, pneumonia, asthma, tuberculosis. Cardiovascular: He denies chest pain, orthopnea, paroxysmal n octurnal dyspnea, edema, palpitations. Gastrointestinal: He denies nausea, vomiting, diarrhea, con stipation, abdominal pain. Genitourinary: Denies any back pain, but does have nocturia, urgency, f requency, dysuria, and decreased strength, and some minimal incontinence. Musculoskeletal: Denies stiffness, swelling in joints or extremities. Neurologic: He has the above-mentioned history of ri gidity and shuffling gait, but no recent cough, no syncopal episodes. PHYSICAL EXAMINATION: VITAL SIGNS: Blood pressure 106/58, O2 sats 96%, respirations 16, pulse of 95, temperature is 98.5, in the emergency room was 100.8. HEENT: Pupils are equal, round, and react to light and accommodation. Sclerae are anicteric. Conj unctivae appear to be slightly hydrated. Oral mucous membranes are dehydrated. NECK: Supple. There are no nodes or masses. JVP is not elevated. LUNGS: Clear. CARDIAC: Shows an irregular rhythm. ABDOMEN: Soft and nontender with no masses or organomegaly. No CVA tenderness. No suprapubic tend erness. SKIN/EXTREMITIES: No edema, clubbing, cyanosis. NEUROLOGICAL: Shows cogwheel rigidity, minimal tremor significant slowness of movement. LABORATORY DATA: Shows the above-mentioned urinalysis within normal limits. Sodium 138, potassium 4.3, chloride 107, bicarbonate 22, BUN 27, creatinine 1.57, glucose 134, calcium 9.1, total bilirubi n 2.0, CK-MB 5.4, troponin 0.032. White count 8500, hematocrit 44, hemoglobin 14. Chest x-ray show ed no acute infiltrate. ASSESSMENT: The patient is an 81-year-old white male with a history of hypertension, atrial fibrill ation , Parkinson's disease who presents with a new finding of decreased stream, dysuria, hematuria for the last 2 weeks, treated with Bactrim with breakthrough fever, increasing weakness and was admi tted to the hospital for probable prostatitis with dehydration and sepsis syndrome as he is tachycar dic and febrile and we will treat with IV fluids with 80 mL an hour, Rocephin 1 gram IV daily. Repe at urinalysis, repeat basic metabolic profile, PT and OT consult to determine strengthening. The pa tient will hopefully defervesced with IV antibiotics and fluids. We will able to be started that on home medications. We will defer prostate exam at this time until the patient has significant antib iotics with evidence of sepsis.
[2016-10-05] MEDS: Sodium Chloride 0.9% 1,000 ML IV SCH (13:00)
[2016-10-05] MEDS: Atorvastatin Calcium 10 MG TAB PO SCH (20:33)
[2016-10-05] MEDS: Rivaroxaban 10 MG TAB PO SCH (20:33)
[2016-10-06 05:25] LABS: Band 5 % (5-11); Hematocrit 40.7 % (42.0-52.0); Mean Platelet Volume 7.1 fL (7.4-10.4); Neutrophil 69 % (42-75); Red Blood Cell (RBC) Count 4.07 mill/uL (4.70-6.10); White Blood Cell (WBC) Count 7.5 thou/uL (4.8-10.8)
[2016-10-06] MEDS: Sodium Chloride 0.9% 1,000 ML IV SCH ×3 (05:41→18:40)
[2016-10-06] MEDS: Digoxin 0.125 MG TAB PO SCH (08:34)
[2016-10-06] MEDS: Famotidine 20 MG TAB PO SCH ×2 (08:35→20:48)
[2016-10-06] MEDS: Metoprolol Tartrate 25 MG TAB PO SCH ×2 (08:35→20:48)
[2016-10-06 10:22] LABS: Anion Gap 14 mmol/L (10-20); BUN (Urea Nitrogen) 21 mg/dL (8.4-25.7); Calc. Creatinine Clearance 50 mL/min (70-130); Calcium 8.2 mg/dL (7.8-10.44); Carbon Dioxide 18 mmol/L (23-31); Chloride 111 mmol/L (98-107); Estimated GFR-MDRD 51
[2016-10-06] MEDS ORDERED: Ciprofloxacin 500 MG TAB PO SCH ×2 (10:30→20:00)
[2016-10-06] MEDS: cefTRIAXone\\ROCEPHIN 1 GM in Sodium Chloride 0.9% 100 ML IVPB SCH (10:46)
--- NOTE | 2016-10-06 12:11 | PRG ---
DATE OF SERVICE: 10/06/2016 SUBJECTIVE: The patient feels weaker today, some difficulty swallowing, some increased weakness on the left side, in fact he had an episode of fecal incontinence last night and urinary incontinence. He is attempting to cooperate with physical therapy, but is minimally improving with some concerns about coughing after swallowing. OBJECTIVE: Shows pulse is 95, temperature 99.1, respirations 24, O2 sats 94%, blood pressure 138/92 . White count still normal at 7500, hematocrit 40, hemoglobin 13. Base met profile is pending. Gini ngs show a few diffuse rhonchi. Cardiac examination shows regular rhythm. Voice is very soft, but Neurological shows significant cogwheel rigidity and spasticity, but no focal weakness. ASSESSMENT: 1. Persistent Parkinson's, possibly increased because of recent infection. We will maintain medica tions, maintain hydration and treatment of urinary tract infection. We will also get CT scan becaus e of some increased symptomatology on hospital. 2. Increase cough and difficulty swallowing. We will obtain speech study. 3. Symptoms of persistent incontinence, dysuria, hematuria on Rocephin. We will continue these melvin atment for possible prostatitis.
--- NOTE | 2016-10-06 13:42 | RAD ---
ONE VIEW CHEST: History: Increasing left sided weakness. Comparison: 10-04-16 FINDINGS: Portable semi upright chest: Enlarged cardiac silhouette. The pulmonary vessels are slightly prominent. Bibasilar interstitial opacities throughout the lung bases. More focal opacification of the right mid lung. No pneumothor ax or osseous abnormalities. IMPRESSION: Increased bibasilar opacities and more focal opacity in the right mid lung. Continued surveillance is recommended. POS: [facility]
--- NOTE | 2016-10-06 13:49 | CT ---
CT OF THE BRAIN WITHOUT CONTRAST: COMPARISON: 07/05/14. HISTORY: Left-sided weakness. TECHNIQUE: Multiple contiguous axial images were obtained in a CT of the brain without contrast. FINDINGS: The brain is normal in morphology and attenuation without focal lesions or confluent areas of infarc tion. There is no evidence of hydrocephalus, intracranial hemorrhage, or extraaxial fluid collecti on. The calvarium and overlying soft tissues are unremarkable. Fluid is seen in the paranasal sinuses. IMPRESSION: No evidence of acute intracranial abnormality. POS: [facility]
[2016-10-06] MEDS: Acetaminophen 325 MG TAB PO PRN (18:41)
[2016-10-06] MEDS: Rivaroxaban 10 MG TAB PO SCH (20:47)
[2016-10-06] MEDS: Atorvastatin Calcium 10 MG TAB PO SCH (20:48)
[2016-10-07] MEDS: Acetaminophen 325 MG TAB PO PRN (02:18)
[2016-10-07] MEDS: Carbidopa/Levodopa 25-100 mg Tablet PO SCH ×3 (05:22→19:51)
[2016-10-07] MEDS: Digoxin 0.125 MG TAB PO SCH (08:40)
[2016-10-07] MEDS: Famotidine 20 MG TAB PO SCH ×2 (08:41→20:12)
[2016-10-07] MEDS: Metoprolol Tartrate 25 MG TAB PO SCH ×2 (08:41→19:51)
--- NOTE | 2016-10-07 09:46 | PRG ---
DATE OF SERVICE: 10/07/2016. SUBJECTIVE: The patient rested peacefully during the night with some respiratory breath, but no chastity l respiratory distress, did eat supper last night with much more awake and alert, but still very wea k. Subjective shows that he has not received the Sinemet since admission because of medication iris nciliation error. OBJECTIVE: Shows that his temperature is still up to 100.9 last night, pulse up to 114, respiration s 24, O2 saturation still 94%, blood pressure is 153/70. His x-ray done yesterday did return showing bibasilar opacities, worse on the right consistent with aspiration pneumonia. White count, however, was normal at 7500, hematocrit 40, hemoglobin 13. Creatinine was slightly imp roved to 1.35, BUN was 21, sodium 139, potassium 3.6, chloride 111, bicarbonate 18. Intake and outp ut showed 2069 in and incontinence x4. Lungs show upper airway sounds with a few rhonchi in the bases. Cardiac examination showed irregular rhythm. Abdomen is soft and nontender. Skin and extremities showed no edema. Speech therapy found that the patient was safe from mechanical soft textures with nectar thickened l iquids by controlled straws with double swallowing and remaining upright for 30 minutes after every meal. ASSESSMENT: Aspiration pneumonia secondary to exacerbation of Parkinson's disease secondary to poss ible lapsed in medication plus dehydration plus resolving prostatitis. PLAN: Restart Sinemet, continue on nectar thickened liquids and mechanical soft diet. Monitor clos justino for aspiration. Continue on Rocephin and switch Cipro to IV Levaquin, start handheld nebulizers to help with secretions. Monitor closely for respiratory distress.
[2016-10-07] MEDS: Sodium Chloride 0.9% 1,000 ML IV SCH ×2 (10:26→22:16)
[2016-10-07] MEDS: cefTRIAXone\\ROCEPHIN 1 GM in Sodium Chloride 0.9% 100 ML IVPB SCH (10:36)
--- NOTE | 2016-10-07 11:47 | RAD ---
CHEST 1 VIEW: HISTORY: Aspiration pneumonia. Followup. COMPARISON: 10/06/16. FINDINGS: The cardiac silhouette is magnified by projection. Shallow inspiration accentuates pulmonary markin gs. Focal opacity at the right base on the previous study is less confluent on the current exam. M ediastinum is midline with aortic calcification. IMPRESSION: Improved aeration of the right lung base. POS: OFF
[2016-10-07] MEDS: Rivaroxaban 10 MG TAB PO SCH (20:12)
[2016-10-07] MEDS: Atorvastatin Calcium 10 MG TAB PO SCH (20:12)
[2016-10-08 05:23] LABS: Red Blood Cell (RBC) Count 3.63 mill/uL (4.70-6.10); White Blood Cell (WBC) Count 5.7 thou/uL (4.8-10.8)
[2016-10-08 05:24] LABS: Band 5 % (5-11); Myelocyte 4 % (0-0); Neutrophil 60 % (42-75)
[2016-10-08] MEDS: Digoxin 0.125 MG TAB PO SCH (08:25)
[2016-10-08] MEDS: Metoprolol Tartrate 25 MG TAB PO SCH ×2 (08:25→21:25)
[2016-10-08] MEDS: Famotidine 20 MG TAB PO SCH ×2 (08:25→21:24)
[2016-10-08] MEDS: Carbidopa/Levodopa 25-100 mg Tablet PO SCH ×3 (08:25→21:24)
[2016-10-08] MEDS: Sodium Chloride 0.9% 1,000 ML IV SCH (11:32)
[2016-10-08] MEDS: cefTRIAXone\\ROCEPHIN 1 GM in Sodium Chloride 0.9% 100 ML IVPB SCH (11:32)
--- NOTE | 2016-10-08 17:55 | PRG ---
DATE OF SERVICE: 10/08/2016 SUBJECTIVE: Mr. Singleton is doing well. Denies any complaints. Discussed with nursing and he is doi ng much better since he has been back on the Sinemet. He is tolerating his diet. No lightheadednes s, dizziness. No fever or chills. OBJECTIVE: VITAL SIGNS: He is afebrile, heart rate is 79, respirations 20, oxygen saturation 93%, blood pressu re 181/90. CARDIOVASCULAR: S1, S2 plus. RESPIRATORY: Normal vesicular breath sounds. ABDOMEN: Soft, nontender, bowel sounds heard in all quadrants. EXTREMITIES: Without cyanosis or clubbing. IMPRESSION: 1. Possible aspiration pneumonitis. 2. Resolved dehydration. 3. Parkinson's disease. 4. Dyslipidemia. PLAN: 1. Stop IV fluids. 2. Change him to oral Levaquin. 3. Recheck laboratories values in the morning. 4. Monitor blood pressure and adjust medications as needed. 5. Dr. Dennison back tonight. 6. Anticipate discharge home in the next day or two.
[2016-10-08] MEDS: Rivaroxaban 10 MG TAB PO SCH (21:24)
[2016-10-08] MEDS: Atorvastatin Calcium 10 MG TAB PO SCH (21:25)
[2016-10-09] MEDS: Carbidopa/Levodopa 25-100 mg Tablet PO SCH ×3 (08:45→20:26)
[2016-10-09] MEDS: Digoxin 0.125 MG TAB PO SCH (08:45)
[2016-10-09] MEDS: Metoprolol Tartrate 25 MG TAB PO SCH ×2 (08:45→20:24)
[2016-10-09] MEDS: Famotidine 20 MG TAB PO SCH ×2 (08:45→20:24)
[2016-10-09] MEDS: Atorvastatin Calcium 10 MG TAB PO SCH (20:24)
[2016-10-09] MEDS: Rivaroxaban 10 MG TAB PO SCH (20:25)
[2016-10-09 20:53] VITALS: TEMP 98.4
--- NOTE | 2016-10-10 07:33 | PRG ---
DATE OF SERVICE: 10/09/2016 SUBJECTIVE: The patient is much more awake and alert, lucid today, eating well, cooperating well wi th therapy. He slept well through the night. No confusion. He has had a much better day yesterday since being back on Sinemet for the last 2 days. OBJECTIVE: Blood pressure is elevated to 181/88, O2 is 95%, respirations 18, pulse 85, afebrile. L ungs are clear. Cardiac examination shows irregular rhythm. Abdomen is soft and nontender. Skin a nd extremities showed no edema, clubbing, cyanosis. Neurological shows improved rigidity, but still significantly rigid, no cogwheel rigidity. Still difficulty with balance and falling backwards, bu t improved cognition and no difficulty swallowing. ASSESSMENT: 1. Improving Parkinson symptoms now on Sinemet. Will get repeat speech and physical therapy evaluat ion today, may consider transfer to SNF unit for continued therapy. 2. Resolving bronchitis, prostatitis, no evidence of fever, chills on oral antibiotic Levaquin. 3. Atrial fibrillation with anticoagulation and fair rate controlled. 4. Hypertension with increased levels over the last 3-4 days. We will increase metoprolol to 50 mg twice daily tomorrow if persistently elevated. 5. Code status is DNR per living will at the office. 6. We will check status of immunizations in the office and inform nurses tomorrow.
[2016-10-10 08:17] VITALS: BP 172/92
[2016-10-10] MEDS: Famotidine 20 MG TAB PO SCH (08:28)
[2016-10-10] MEDS: Carbidopa/Levodopa 25-100 mg Tablet PO SCH (08:28)
[2016-10-10] MEDS: Digoxin 0.125 MG TAB PO SCH (08:29)
[2016-10-10] MEDS ORDERED: Metoprolol Tartrate 50 MG TAB PO SCH (09:00)
[2016-10-10] MEDS ORDERED: Metoprolol Tartrate 25 MG TAB PO SCH (10:05)
--- NOTE | 2016-10-10 12:38 | DIS ---
FINAL DIAGNOSES: 1. Acute prostatitis with subsequent resolving acute prostatitis. 2. Significant exacerbation of Parkinson disease secondary to dehydration, prostatitis, improving. 3. Episode of aspiration, right lower lobe pneumonia, improving with improving of his Parkinson's d isease and deconditioning. 4. Stable atrial fibrillation, anticoagulation, stable and rate controlled with no evidence of acut e cerebrovascular accident. 5. Hypertension, stable. HOSPITAL COURSE: The patient is a very pleasant 81-year-old white male with a long history of atria l fibrillation, Parkinson disease, hypertension, living at home who has had intermittent symptoms of dark urine and dysuria, found to have a normal urinalysis, but developed a fever, decreasing urine output. He was felt to have prostatitis, was admitted to the hospital and started on IV Rocephin as had not responded to Bactrim the previous day, became significantly weak, was unable to handle secr etions, became somewhat altered and subsequently developed an aspiration pneumonia, but then began t o improve with IV fluids, IV Rocephin, was able to restart back on his Azilect and Sinemet, improved greatly, but has remained severely weak, was unable to walk without assistance, maintain his ADLs a nd therefore was continued on physical therapy, he was felt to be unsafe to be discharged home and w ill be transferred to the SNF for continued physical therapy. His blood pressure on admission was s lightly low at 106/58 and O2 sat 96%, respirations 18, pulse 95. During the hospitalization his blo od pressure did increase, remained increased up to 172-190 despite being restarted back on his previ ous medications of metoprolol 25 mg twice daily. Therefore, his metoprolol was increased to 50 twic e daily prior to transfer to the SNF. His atrial fibrillation as mentioned above remained stable wi th anticoagulation with Xarelto 15 mg daily. He was treated with Levaquin and Rocephin IV and then was switched to oral Levaquin and continued to do well with this for his prostatitis and is remainin g on this. In the skilled unit his carbidopa/levodopa, as mentioned above, was continued on his pre vious dose of 25/100 three times daily and his Azilect was continued also. He has been seen by Isha hess and Occupational Therapy and has been advanced on his diet to mechanical soft with extra gravy an d double swallowing techniques which he understands this as he had cognitively remained intact and t herefore will be continued on this. His laboratories on admission to the acute unit show white count 8500, hematocrit 44, hemoglobin 14. Sodium 138, potassium 4.3, chloride 107, bicarbonate 22, BUN is 27, creatinine was slightly elevat ed at 1.57. Cardiac enzymes were normal as mentioned above. Lactate was normal. On transfer, his creatinine decreased to 1.35, potassium 3.6, BUN was 21. His white count remained normal the entire time with a white count of 6700, hematocrit 35, hemoglobin 11.7. Urine cultures as mentioned above showed no significant abnormality. Urinalysis showed no significant abnormalities and blood cultur es were negative, as well as flu screen. He was therefore felt to be stable to continue at the SNF unit on oral antibiotics, his oral Demetria on's medication and PT, OT and Speech until he is felt to have reached his baseline to be safe to be discharged home. He will be monitored closely by myself for signs of recurrent aspiration.
== END 2016-10-10 10:30 | DRG 871 ==
LOC: NAV ERS 18:28 → NAV ACUTE 21:47
PROVIDERS: ADMIT Internal Medicine; ATTEND Internal Medicine
DX: A41.9 Sepsis, unspecified organism (principal); J69.0 Pneumonitis due to inhalation of food and vomit; E86.0 Dehydration; I48.91 Unspecified atrial fibrillation; G20 Parkinson's disease; N41.9 Inflammatory disease of prostate, unspecified; I10 Essential (primary) hypertension; E78.5 Hyperlipidemia, unspecified; R26.89 Other abnormalities of gait and mobility; R15.9 Full incontinence of feces; Z79.01 Long term (current) use of anticoagulants; Z66 Do not resuscitate; R32 Unspecified urinary incontinence
CPT/HCPCS: 36415; 70450; 71010; 80048; 80053; 81001; 82553; 83690; 84484; 85007; 85025; 85027; 87040; 93005; 96360; A4216; G8996-GN-CK; G8997-GN-CK; J0696; J1956; J7050

== ENCOUNTER 2016-10-10 07:22 | Inpatient (IN) | payer MEDICARE ==
[2016-10-10] MEDS ORDERED: Acetaminophen 650 MG Suppository PR PRN (10:19)
[2016-10-10] MEDS ORDERED: Ondansetron ODT 4 MG TAB PO PRN (10:19)
[2016-10-10] MEDS ORDERED: Acetaminophen 325 MG TAB PO PRN (10:19)
[2016-10-10 11:42] VITALS: BMI 25.0
[2016-10-10] MEDS ORDERED: Non-Formulary Item 1 EACH (Carbidopa/Levodopa [Sinemet Cr] 1 TAB) PO SCH (15:00)
[2016-10-10] MEDS: Carbidopa/Levodopa 25-100 mg Tablet PO SCH ×2 (15:10→21:10)
[2016-10-10] MEDS ORDERED: Non-Formulary Item 1 EACH (Rivaroxaban [Xarelto] 15 MG) PO SCH (17:00)
[2016-10-10] MEDS: Rivaroxaban 10 MG TAB PO SCH (17:55)
[2016-10-10] MEDS ORDERED: Famotidine 20 MG TAB PO SCH (21:00)
[2016-10-10] MEDS ORDERED: Atorvastatin Calcium 10 MG TAB PO SCH (21:00)
[2016-10-10] MEDS ORDERED: Metoprolol Tartrate 50 MG TAB PO SCH (21:00)
[2016-10-10] MEDS: Famotidine 20 MG TAB PO SCH (21:10)
[2016-10-10] MEDS: Metoprolol Tartrate 50 MG TAB PO SCH (21:10)
[2016-10-10] MEDS: Atorvastatin Calcium 10 MG TAB PO SCH (21:11)
[2016-10-11 05:30] LABS: Anion Gap 11 mmol/L (10-20); BUN (Urea Nitrogen) 27 mg/dL (8.4-25.7); Band 5 % (5-11); Calc. Creatinine Clearance 61 mL/min (70-130); Calcium 8.3 mg/dL (7.8-10.44); Carbon Dioxide 24 mmol/L (23-31); Chloride 110 mmol/L (98-107); Estimated GFR-MDRD 63; Hematocrit 36.8 % (42.0-52.0); Mean Platelet Volume 6.3 fL (7.4-10.4); Myelocyte 3 % (0-0); Neutrophil 61 % (42-75); Red Blood Cell (RBC) Count 3.77 mill/uL (4.70-6.10); White Blood Cell (WBC) Count 6.5 thou/uL (4.8-10.8)
[2016-10-11 05:36] LABS: Bilirubin Negative (Negative); Blood, Urine Negative (Negative); Glucose, Urine (Dipstick) Negative (Negative); Ketone, Urine Negative (Negative); Nitrite Negative (Negative); Protein, Urine (Dipstick) Negative (Neg-Trace)
[2016-10-11 05:37] LABS: Bacteria/HPF None Seen HPF (None Seen); RBC/HPF None Seen HPF (0-3); Squamous Epithelial 0-3 HPF (0-3); WBC/HPF None Seen HPF (0-3)
[2016-10-11] MEDS: Carbidopa/Levodopa 25-100 mg Tablet PO SCH ×3 (08:38→20:09)
[2016-10-11] MEDS: Metoprolol Tartrate 50 MG TAB PO SCH ×2 (08:39→20:10)
[2016-10-11] MEDS: Famotidine 20 MG TAB PO SCH ×2 (08:39→20:09)
[2016-10-11] MEDS: Digoxin 0.125 MG TAB PO SCH (08:39)
[2016-10-11] MEDS: RASAGILINE 1 MG PO SCH (08:39)
[2016-10-11] MEDS ORDERED: RASAGILINE MESYLATE 1 MG PO SCH (09:00)
[2016-10-11] MEDS: Rivaroxaban 10 MG TAB PO SCH (16:41)
[2016-10-11] MEDS: Atorvastatin Calcium 10 MG TAB PO SCH (20:09)
[2016-10-12] MEDS: Carbidopa/Levodopa 25-100 mg Tablet PO SCH ×3 (08:39→20:05)
[2016-10-12] MEDS: Famotidine 20 MG TAB PO SCH ×2 (08:39→20:05)
[2016-10-12] MEDS: Digoxin 0.125 MG TAB PO SCH (08:39)
[2016-10-12] MEDS: RASAGILINE 1 MG PO SCH (08:39)
[2016-10-12] MEDS: Metoprolol Tartrate 50 MG TAB PO SCH ×2 (08:39→20:05)
[2016-10-12] MEDS: Rivaroxaban 10 MG TAB PO SCH (17:35)
[2016-10-12] MEDS: Losartan Potassium 50 MG TAB PO SCH (20:05)
[2016-10-12] MEDS: Atorvastatin Calcium 10 MG TAB PO SCH (20:05)
--- NOTE | 2016-10-13 01:14 | PRG ---
DATE OF SERVICE: 10/12/2016 SUBJECTIVE: The patient is much more awake, and alert, lucid and agrees that he is improving, ashish g no problems with cough, but it is still very weak. His therapy has been helping him. OBJECTIVE: VITAL SIGNS: Blood pressure is 181/81, temperature 97, pulse rate is 6, respirations 18, O2 sats 95 %. CARDIAC: Shows regular rhythm. ABDOMEN: Soft, nontender with no masses or organomegaly. EXTREMITIES: Showed no edema, clubbing, cyanosis. NEUROLOGICAL: Shows diffuse weakness and was irritating trying to need to hold backwards. ASSESSMENT AND PLAN: Parkinson's disease with decreased conditioning, slowly improving. Resolving prostatitis, no evidence of dysuria or hematuria, on Levaquin and increased hypertension, increase l osartan to 50 twice daily with metoprolol 50 twice daily. Continue physical therapy and Sinemet as well as continue and monitor closely follow neurological deficits and he has been improving with the rapy and we will monitor blood pressure. Continue Levaquin for 2-week course of antibiotics.
[2016-10-13] MEDS: Digoxin 0.125 MG TAB PO SCH (09:15)
[2016-10-13] MEDS: Carbidopa/Levodopa 25-100 mg Tablet PO SCH ×3 (09:15→20:29)
[2016-10-13] MEDS: Famotidine 20 MG TAB PO SCH ×2 (09:16→20:30)
[2016-10-13] MEDS: Metoprolol Tartrate 50 MG TAB PO SCH ×2 (09:16→20:29)
[2016-10-13] MEDS: RASAGILINE 1 MG PO SCH (09:16)
[2016-10-13] MEDS: Rivaroxaban 10 MG TAB PO SCH (16:53)
[2016-10-13] MEDS: Losartan Potassium 50 MG TAB PO SCH (20:29)
[2016-10-13] MEDS: Atorvastatin Calcium 10 MG TAB PO SCH (20:30)
[2016-10-14] MEDS: Carbidopa/Levodopa 25-100 mg Tablet PO SCH (08:46)
[2016-10-14] MEDS: Metoprolol Tartrate 50 MG TAB PO SCH (08:46)
[2016-10-14] MEDS: Digoxin 0.125 MG TAB PO SCH (08:46)
[2016-10-14] MEDS: Famotidine 20 MG TAB PO SCH (08:46)
[2016-10-14] MEDS: RASAGILINE 1 MG PO SCH (08:46)
[2016-10-14 10:08] VITALS: BP 172/84
[2016-10-14 10:16] VITALS: TEMP 98.4
--- NOTE | 2016-10-15 00:58 | DIS ---
DATE OF ADMISSION TO THE ACUTE UNITE: 10/04/2016 DATE OF TRANSFER TO THE SKILLED UNIT: 10/10/2016 FINAL DIAGNOSES: 1. Acute prostatitis, resolved. 2. Severe deconditioning with difficulty swallowing and walking with subsequent aspiration pneumoni a, resolved. 3. Significant Parkinson's disease with exacerbation secondary to infection, improving with physica l therapy, but still persistent. 4. Hypertension with exacerbation during hospitalization requiring increased dose of medication. 5. Atrial fibrillation with rate control and anticoagulation stable on metoprolol, digoxin and Xare lto. HOSPITAL COURSE: The patient is a very pleasant 81-year-old white male living at home with a histor y of hypertension, chronic atrial fibrillation, Parkinson disease, hyperlipidemia, and caring for [facility] at home, but presented on admission with a 2-week history of increasingly dark urine, dysuria, was found to have normal urinary tract infection, but was treated with Bactrim for possible prostat itis, but then spiked a fever, brought into the emergency room and found to be so weak that he could not maintain ADLs; therefore, admitted to the hospital and started on IV Rocephin and fluids as his creatinine had showed acute on chronic renal failure with creatinine increasing to 1.01-1.57. Whit e count remained normal as did urinalysis and urine culture and blood culture; however, he slowly, b ut surely improved on the IV fluids and antibiotics with normalization of his renal function with a creatinine improving back to 1.11 on discharge with a BUN of 27, sodium 141, potassium 3.7, chloride 110. He did develop however, increasingly with productive cough and x-ray did show right lower lob e infiltrate consistent with possible aspiration. He was seen by speech and physical therapy who fe lt that he was aspirating and was started on pureed diet and nectar thickened liquids. However, as he slowly improved, his swelling did improve and he would advance to mechanical soft with thin liqui ds with double swallow technique. His physical conditioning also improved as he was unable to trans manjit or arise from the bed without assistance on admission, but then slowly improved to the point radha t he was able to transfer and walk with a walker 200 feet and only required some cueing to ensure [facility] safety. He was felt to be stable to be discharged home. He finished his full 10 day course of Le vaquin and Rocephin. His urine was clear. He was felt to be stable to be discharged home. He will be given another 4 days of Levaquin for a full 2-week course to ensure complete eradication of pros tatitis and will be discharged home also on new medication losartan 50 mg at night for his hypertens ion and metoprolol 50 mg twice daily, which is an increased dose of metoprolol 25 mg twice daily. H e will be continued on digoxin 0.125 daily, carbidopa/levodopa 25/100 three times daily, atorvastati n 10 mg nightly, that he had been taking at home and Xarelto 15 mg daily. He will be followed by [facility] as he has seen [facility] in the past and continue with visiting [facility] and will continue with speech and physical therapy as an outpatient, will follow up with ma in 3-4 weeks.
== END 2016-10-14 13:45 | disposition home health service (06) | DRG 947 ==
LOC: NAV ACUTE 11:17
PROVIDERS: ADMIT Internal Medicine; ATTEND Internal Medicine
DX: R53.1 Weakness (principal); J69.0 Pneumonitis due to inhalation of food and vomit; G20 Parkinson's disease; N41.0 Acute prostatitis; I10 Essential (primary) hypertension; Z79.01 Long term (current) use of anticoagulants; I48.2 Chronic atrial fibrillation; E78.5 Hyperlipidemia, unspecified; Z66 Do not resuscitate
CPT/HCPCS: 36415; 80048; 81001; 85025; G8978-GP-CJ; G8979-GP-CI; G8996-GN-CJ; G8997-GN-CJ

== ENCOUNTER 2017-02-21 10:25 | Emergency (ER) | payer MEDICARE ==
--- NOTE | 2017-02-21 11:23 | RAD ---
LEFT RIBS 4 VIEWS: Date: 02/21/17 A total of four views are obtained. HISTORY: Left rib injury. FINDINGS/IMPRESSION: No evidence of fracture identified. POS: [facility]
== END 2017-02-21 11:45 | disposition home or self-care (01) ==
LOC: NAV ERS 10:25
DX: S20.212A Contusion of left front wall of thorax, initial encounter (principal); I11.0 Hypertensive heart disease with heart failure; I50.9 Heart failure, unspecified; G20 Parkinson's disease; Z79.899 Other long term (current) drug therapy; W01.198A Fall on same level from slipping, tripping and stumbling with subsequent striking against other object, initial encounter; Y92.091 Bathroom in other non-institutional residence as the place of occurrence of the external cause

== ENCOUNTER 2018-04-06 12:05 | Emergency (ER) | payer MEDICARE ==
[2018-04-06 12:47] LABS: #Basophils 0.1 thou/uL (0.0-0.2); #Eosinphils 0.3 thou/uL (0.0-0.7); #Lymphocytes 2.1 thou/uL (1.20-3.40); #Monocytes 0.8 thou/uL (0.11-0.59); #Neutrophils 4.7 thou/uL (1.40-6.50); %Basophils 0.9 % (0.0-1.0); %Eosinophils 3.7 % (0.0-10.0); %Lymphocytes 26.6 % (21.0-51.0); %Monocytes 9.7 % (0.0-10.0); %Neutrophils 59.2 % (42.0-75.0); Hemoglobin 14.4 g/dL (14.0-18.0); Mean Corpuscular HGB CONC 32.7 g/dL (32.0-36.0); Mean Corpuscular Hemoglobin 31.3 pg (27.0-31.0); Mean Corpuscular Volume 95.8 fL (78.0-98.0); Mean Platelet Volume 7.2 fL (7.4-10.4); Platelet Count 191 thou/uL (130-400); RBC Distribution Width 12.1 % (11.5-14.5); Red Blood Cell (RBC) Count 4.58 mill/uL (4.70-6.10); White Blood Cell (WBC) Count 7.9 thou/uL (4.8-10.8)
[2018-04-06 12:50] LABS: Bilirubin Negative (Negative); Blood, Urine Negative (Negative); Clarity Clear (Clear); Glucose, Urine (Dipstick) Negative (Negative); Leukocyte Negative (Negative); Nitrite Negative (Negative); Protein, Urine (Dipstick) Negative (Neg-Trace)
[2018-04-06 13:01] LABS: ALT (SGPT) Less than 6 U/L (8-55); AST (SGOT) 17 U/L (5-34); Albumin 3.9 g/dL (3.4-4.8); Alkaline Phosphatase 56 U/L (40-150); Anion Gap 14 mmol/L (10-20); BUN (Urea Nitrogen) 35 mg/dL (8.4-25.7); Calc. Creatinine Clearance 0 mL/min (70-130); Calcium 9.5 mg/dL (7.8-10.44); Carbon Dioxide 24 mmol/L (23-31); Chloride 108 mmol/L (98-107); Estimated GFR-MDRD 56; Globulin 3.1 g/dL (2.4-3.5); Glucose 92 mg/dL (83-110); Potassium 4.5 mmol/L (3.5-5.1); Sodium 141 mmol/L (136-145)
[2018-04-06 13:03] LABS: Digoxin 0.61 ng/mL (0.8-2.0)
[2018-04-06] MEDS ORDERED: Sodium Chloride 0.9% 500 ML ONE (13:37)
--- NOTE | 2018-04-06 14:05 | CT ---
CT HEAD NONCONTRAST: COMPARISON: 10/06/16. INDICATION: Altered mental status. FINDINGS: There is mild parenchymal volume loss and compensatory dilatation of the ventricular system. No evid ence of intracranial hemorrhage, mass effect, or midline shift. 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 IMPRESSION: No acute intracranial hemorrhage or mass effect. POS: [facility]
== END 2018-04-06 15:30 | disposition home or self-care (01) ==
LOC: NAV ERS 12:05
DX: R53.1 Weakness (principal); I11.0 Hypertensive heart disease with heart failure; I50.9 Heart failure, unspecified; G20 Parkinson's disease; Z79.899 Other long term (current) drug therapy
CPT/HCPCS: 70450; 80053; 80162; 81003; 85025; 93005; J7050

== ENCOUNTER 2018-04-06 21:24 | Emergency (ER) | payer MEDICARE | END 2018-04-06 23:12 | disposition short-term general hospital (02) | LOC: NAV ERS 21:24 | DX: G20 Parkinson's disease (principal); I11.0 Hypertensive heart disease with heart failure; I50.9 Heart failure, unspecified; Z79.01 Long term (current) use of anticoagulants; Z79.899 Other long term (current) drug therapy | CPT/HCPCS: 70450; 80053; 80162; 81003; 85025; 93005; 99291; J7050 ==

== ENCOUNTER 2019-01-28 09:26 | Emergency (ER) | payer MEDICARE ==
[2019-01-28 09:51] LABS: #Eosinphils 0.4 thou/uL (0.0-0.7); #Lymphocytes 1.4 thou/uL (1.20-3.40); #Monocytes 0.5 thou/uL (0.11-0.59); #Neutrophils 4.9 thou/uL (1.40-6.50); %Basophils 0.6 % (0.0-1.0); %Eosinophils 5.5 % (0.0-10.0); %Lymphocytes 19.3 % (21.0-51.0); %Monocytes 6.3 % (0.0-10.0); %Neutrophils 68.3 % (42.0-75.0); Mean Corpuscular HGB CONC 32.9 g/dL (32.0-36.0); Mean Corpuscular Hemoglobin 31.9 pg (27.0-31.0); Mean Platelet Volume 6.4 fL (7.4-10.4); Platelet Count 204 thou/uL (130-400); RBC Distribution Width 12.4 % (11.5-14.5); Red Blood Cell (RBC) Count 4.08 mill/uL (4.70-6.10); White Blood Cell (WBC) Count 7.1 thou/uL (4.8-10.8)
[2019-01-28 09:56] LABS: INR-International Normal Ratio 1.1; PTT 28.6 SEC (22.9-36.1); Prothrombin Time 14.7 SEC (12.0-14.7)
[2019-01-28] MEDS ORDERED: Sodium Chloride 0.9% 1,000 ML ONE (09:59)
[2019-01-28 10:03] LABS: ALT (SGPT) Less than 6 U/L (8-55); AST (SGOT) 24 U/L (5-34); Albumin 3.7 g/dL (3.4-4.8); Alkaline Phosphatase 54 U/L (40-150); Anion Gap 14 mmol/L (10-20); BUN (Urea Nitrogen) 35 mg/dL (8.4-25.7); Bilirubin, Total 1.1 mg/dL (0.2-1.2); Calc. Creatinine Clearance 0 mL/min (70-130); Calcium 9.2 mg/dL (7.8-10.44); Carbon Dioxide 20 mmol/L (23-31); Chloride 106 mmol/L (98-107); Estimated GFR-MDRD 57; Globulin 2.6 g/dL (2.4-3.5); Glucose 175 mg/dL (83-110); Potassium 4.4 mmol/L (3.5-5.1); Protein, Total 6.3 g/dL (5.8-8.1); Sodium 136 mmol/L (136-145)
--- NOTE | 2019-01-28 10:10 | RAD ---
Chest AP view INDICATION: Left-sided weakness COMPARISON: December 12, 2018 FINDINGS: Lungs:The lungs are clear Cardiac silhouette pulmonary vasculature:The cardiomediastinal silhouette appears within normal limit s. Pleural spaces:No pleural effusion or pneumothorax is demonstrated. Upper abdomen:No abnormality seen. Osseous structures: No acute osseous abnormality. IMPRESSION: No acute cardiopulmonary abnormality.
--- NOTE | 2019-01-28 10:34 | CT ---
CT OF BRAIN PERFORMED WITHOUT CONTRAST ENHANCEMENT: HISTORY: Injury. The patient fell while shaving. Weakness. COMPARISON: 12/12/2018 study. FINDINGS: There is generalized ventricular and sulcal prominence. 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 No hemorrha ge or mass effect. Mastoid air cells are clear. There is mild mucosal change in both maxillary sinuses. IMPRESSION: No acute intracranial abnormalities. Stable exam. POS: [facility]
[2019-01-28 11:18] LABS: Bilirubin Negative (Negative); Blood, Urine Negative (Negative); Clarity Clear (Clear); Glucose, Urine (Dipstick) Negative (Negative); Leukocyte Negative (Negative); Nitrite Negative (Negative); Protein, Urine (Dipstick) Negative (Neg-Trace); pH, Urine 6.5 (5.0-9.0)
== END 2019-01-28 14:20 | disposition home or self-care (01) ==
LOC: NAV ERS 09:26
DX: I48.91 Unspecified atrial fibrillation (principal); R53.1 Weakness; E86.9 Volume depletion, unspecified; E78.5 Hyperlipidemia, unspecified; I11.0 Hypertensive heart disease with heart failure; I50.9 Heart failure, unspecified; G20 Parkinson's disease; Z86.73 Personal history of transient ischemic attack (TIA), and cerebral infarction without residual deficits; Z79.899 Other long term (current) drug therapy; Z79.82 Long term (current) use of aspirin
CPT/HCPCS: 36415; 36416; 70450; 71045; 80053; 81003; 84484; 85025; 85610; 85730; 93005; 96360; 96361; J7050

== ENCOUNTER 2019-04-22 12:11 | Outpatient (CLI) | payer MEDICARE ==
--- NOTE | 2019-04-22 12:38 | RAD ---
EXAM: Chest Two Views 04/22/2019 12:35 PM HISTORY: Cough COMPARISON: Chest radiograph dated December 12, 2018. FINDINGS: Heart: Normal in size and contour. Pulmonary vessels: Normal. Costophrenic angles: Clear. Lungs: No confluent airspace opacity is evident. Chronic lung changes are stable. Pneumothorax: None. Osseous structures:Intact. Additional findings: Vascular calcifications of the aortic arch are stable. IMPRESSION: No significant acute intrathoracic disease.
[2019-04-22 13:23] LABS: #Basophils 0.1 thou/uL (0.0-0.2); #Eosinphils 0.3 thou/uL (0.0-0.7); #Lymphocytes 1.8 thou/uL (1.20-3.40); #Monocytes 0.7 thou/uL (0.11-0.59); #Neutrophils 3.8 thou/uL (1.40-6.50); %Basophils 1.1 % (0.0-1.0); %Eosinophils 4.6 % (0.0-10.0); %Lymphocytes 26.9 % (21.0-51.0); %Monocytes 9.8 % (0.0-10.0); %Neutrophils 57.6 % (42.0-75.0); Hemoglobin 13.8 g/dL (14.0-18.0); Mean Corpuscular HGB CONC 31.5 g/dL (32.0-36.0); Mean Corpuscular Hemoglobin 31.6 pg (27.0-31.0); Mean Platelet Volume 6.4 fL (7.4-10.4); Platelet Count 250 thou/uL (130-400); RBC Distribution Width 12.3 % (11.5-14.5); Red Blood Cell (RBC) Count 4.35 mill/uL (4.70-6.10); White Blood Cell (WBC) Count 6.6 thou/uL (4.8-10.8)
[2019-04-22 13:24] LABS: ALT (SGPT) 6 U/L (8-55); AST (SGOT) 19 U/L (5-34); Alkaline Phosphatase 57 U/L (40-150); Anion Gap 14 mmol/L (10-20); BUN (Urea Nitrogen) 30 mg/dL (8.4-25.7); Bilirubin, Total 1.2 mg/dL (0.2-1.2); Calc. Creatinine Clearance 0 mL/min (70-130); Calcium 9.7 mg/dL (7.8-10.44); Carbon Dioxide 21 mmol/L (23-31); Chloride 107 mmol/L (98-107); Estimated GFR-MDRD 56; Glucose 104 mg/dL (83-110); Potassium 4.3 mmol/L (3.5-5.1); Sodium 138 mmol/L (136-145)
== END 2019-04-22 12:12 | disposition home or self-care (01) ==
LOC: NAV RAD 12:11
PROVIDERS: ATTEND Internal Medicine
DX: R05 Cough (principal)
CPT/HCPCS: 71046; 80053; 85025

== ENCOUNTER 2020-05-11 10:15 | Emergency (ER) | payer SELFPAY ==
[~2020-05-11 10:15] MED LIST: Iopamidol 370 76% 100 ML VIAL ONE
[2020-05-11 11:30] LABS: #Basophils 0.1 thou/uL (0.0-0.2); #Eosinphils 0.1 thou/uL (0.0-0.7); #Lymphocytes 2.7 thou/uL (1.20-3.40); #Monocytes 0.7 thou/uL (0.11-0.59); #Neutrophils 5.7 thou/uL (1.40-6.50); %Basophils 0.6 % (0.0-1.0); %Eosinophils 1.4 % (0.0-10.0); %Lymphocytes 29.6 % (21.0-51.0); %Monocytes 7.1 % (0.0-10.0); %Neutrophils 61.3 % (42.0-75.0); Hemoglobin 14.3 g/dL (14.0-18.0); Mean Corpuscular HGB CONC 31.2 g/dL (32.0-36.0); Mean Corpuscular Hemoglobin 31.6 pg (27.0-31.0); Mean Platelet Volume 6.3 fL (7.4-10.4); Platelet Count 270 thou/uL (130-400); Red Blood Cell (RBC) Count 4.51 mill/uL (4.70-6.10); White Blood Cell (WBC) Count 9.3 thou/uL (4.8-10.8)
[2020-05-11 11:37] LABS: INR-International Normal Ratio 1.4; PTT 28.6 sec (22.9-36.1); Prothrombin Time 17.3 sec (12.0-14.7)
[2020-05-11 11:43] LABS: ALT (SGPT) 8 U/L (8-55); AST (SGOT) 14 U/L (5-34); Albumin 3.7 g/dL (3.4-4.8); Alkaline Phosphatase 58 U/L (40-110); Anion Gap 15 mmol/L (10-20); BUN (Urea Nitrogen) 20 mg/dL (8.4-25.7); Bilirubin, Total 1.2 mg/dL (0.2-1.2); Calc. Creatinine Clearance 0 mL/min (70-130); Calcium 8.8 mg/dL (7.8-10.44); Carbon Dioxide 23 mmol/L (23-31); Chloride 106 mmol/L (98-107); Estimated GFR-MDRD 70; Glucose 128 mg/dL (83-110); Potassium 4.1 mmol/L (3.5-5.1); Protein, Total 6.7 g/dL (5.8-8.1); Sodium 140 mmol/L (136-145)
[2020-05-11 11:49] LABS: Digoxin 0.32 ng/mL (0.8-2.0)
[2020-05-11 12:51] LABS: Bilirubin Negative (Negative); Blood, Urine Negative (Negative); Clarity Clear (Clear); Glucose, Urine (Dipstick) Negative (Negative); Ketone, Urine Negative (Negative); Leukocyte Negative (Negative); Nitrite Negative (Negative); Protein, Urine (Dipstick) Negative (Neg-Trace); Specific Gravity, Urine 1.015 (1.005-1.030)
--- NOTE | 2020-05-11 13:33 | CT ---
EXAM: CT Lower Ext RT W WO Con PROVIDED CLINICAL HISTORY: Right ankle pain. Ulceration adjacent to the lateral malleolus right ankle. Increase in tenderness an d swelling as well as erythema. COMPARISON: None FINDINGS: There is prominent subcutaneous soft tissue swelling seen at the lateral aspect of the foot as well a s about the ankle greater anteriorly and laterally. No fluid collection is seen to suggest an abscess. No definitive soft tissue defect is identified on this exam, and there is no subcutaneous em physema. Diffuse osteopenia is present. No fracture or dislocation is seen involving the imaged foot/ankle. No osseous destruction is seen to suggest osteomyelitis based on CT evaluation; although, MRI would be more sensitive study of choice for evaluation osteomyelitis. A tiny plantar calcaneal enthesophyte is identified. No joint effusion is seen. The posterior tibial artery is visualized in the distal ankle and at the foot which is patent. The do rsalis pedis artery is not definitely visualized. IMPRESSION: 1. Subcutaneous soft tissue swelling involving the ankle and foot greater laterally and anterolateral ly. Findings could be related to cellulitis in the correct clinical scenario. There is no fluid collection seen to suggest an abscess. 2.. Osteopenia. 3. No osseous destruction is seen on this examination to suggest osteomyelitis. However, MRI would be more sensitive study of choice for evaluation of osteomyelitis.
== END 2020-05-11 14:00 | disposition home or self-care (01) ==
LOC: NAV ERS 10:15
DX: K92.2 Gastrointestinal hemorrhage, unspecified (principal); L03.115 Cellulitis of right lower limb; I48.91 Unspecified atrial fibrillation; I11.0 Hypertensive heart disease with heart failure; I50.9 Heart failure, unspecified; E78.5 Hyperlipidemia, unspecified; E78.00 Pure hypercholesterolemia, unspecified; Z86.73 Personal history of transient ischemic attack (TIA), and cerebral infarction without residual deficits; Z79.82 Long term (current) use of aspirin; Z79.899 Other long term (current) drug therapy
CPT/HCPCS: 80053; 80162; 81003; 84484; 85025; 85610; 85730; 93005; 94760; Q9967

== ENCOUNTER 2020-07-08 11:57 | Emergency (ER) | payer SELFPAY ==
[2020-07-08] MEDS ORDERED: Acetaminophen 500 MG TAB ONE (12:35)
[2020-07-08 12:42] LABS: Band 14 % (5-11); Hemoglobin 13.3 g/dL (14.0-18.0); Lymphocytes 8 % (21-51); MDiff Complete? YES; Mean Corpuscular HGB CONC 31.9 g/dL (32.0-36.0); Mean Corpuscular Hemoglobin 32.2 pg (27.0-31.0); Mean Platelet Volume 6.6 fL (7.4-10.4); Monocytes 3 % (0-10); Neutrophil 75 % (42-75); Platelet Count 218 thou/uL (130-400); RBC Distribution Width 12.1 % (11.5-14.5); Red Blood Cell (RBC) Count 4.16 mill/uL (4.70-6.10); White Blood Cell (WBC) Count 20.9 thou/uL (4.8-10.8)
[2020-07-08 12:46] LABS: ALT (SGPT) Less than 6 U/L (8-55); AST (SGOT) 17 U/L (5-34); Albumin 3.5 g/dL (3.4-4.8); Alkaline Phosphatase 59 U/L (40-110); Anion Gap 15 mmol/L (10-20); BUN (Urea Nitrogen) 28 mg/dL (8.4-25.7); Bilirubin, Total 2.3 mg/dL (0.2-1.2); Calc. Creatinine Clearance 0 mL/min (70-130); Calcium 9.1 mg/dL (7.8-10.44); Carbon Dioxide 23 mmol/L (23-31); Chloride 103 mmol/L (98-107); Estimated GFR-MDRD 52; Globulin 3.3 g/dL (2.4-3.5); Glucose 180 mg/dL (83-110); Potassium 4.4 mmol/L (3.5-5.1); Protein, Total 6.8 g/dL (5.8-8.1); Sodium 137 mmol/L (136-145)
[2020-07-08 13:05] LABS: Bilirubin Small (Negative); Blood, Urine Large (Negative); Glucose, Urine (Dipstick) Negative (Negative); Ketone, Urine Trace mg/dL (Negative); Leukocyte Small (Negative); Nitrite Positive (Negative); Protein, Urine (Dipstick) > or equal to 300 mg/dL (Neg-Trace); Specific Gravity, Urine 1.025 (1.005-1.030); pH, Urine 5.5 (5.0-9.0)
[2020-07-08 13:06] LABS: Clarity Hazy (Clear)
[2020-07-08 13:08] LABS: RBC/HPF Greater than 50 HPF (0-3)
[2020-07-08 13:11] LABS: Bacteria/HPF 4+ HPF (None Seen); Squamous Epithelial 0-3 HPF (0-3); Transitional Epithelial 0-3 HPF (None Seen)
[2020-07-08] MEDS ORDERED: Ampicillin 2 GM VIAL ONE (13:20)
== END 2020-07-08 14:55 | disposition short-term general hospital (02) ==
LOC: NAV ERS 11:57
DX: A41.9 Sepsis, unspecified organism (principal); N30.01 Acute cystitis with hematuria; G20 Parkinson's disease; I11.0 Hypertensive heart disease with heart failure; I50.9 Heart failure, unspecified; E78.5 Hyperlipidemia, unspecified; E78.00 Pure hypercholesterolemia, unspecified; Z86.73 Personal history of transient ischemic attack (TIA), and cerebral infarction without residual deficits; Z79.82 Long term (current) use of aspirin; Z79.899 Other long term (current) drug therapy
CPT/HCPCS: 51701; 80053; 81003; 81015; 83605; 85025; 87040; 87077; 87086; 87186; 96365; 96375; J0290; J3370

== ENCOUNTER 2021-05-23 17:13 | Emergency (ER) | payer MEDICARE, BC ==
[2021-05-23 17:41] LABS: #Basophils 0.1 thou/uL (0.0-0.2); #Eosinphils 0.3 thou/uL (0.0-0.7); #Lymphocytes 2.1 thou/uL (1.20-3.40); #Monocytes 0.6 thou/uL (0.11-0.59); %Basophils 0.8 % (0.0-1.0); %Eosinophils 4.1 % (0.0-10.0); %Lymphocytes 25.8 % (21.0-51.0); %Monocytes 7.6 % (0.0-10.0); %Neutrophils 61.7 % (42.0-75.0); Hemoglobin 12.6 g/dL (14.0-18.0); Mean Corpuscular HGB CONC 31.4 g/dL (32.0-36.0); Mean Corpuscular Hemoglobin 31.8 pg (27.0-31.0); Mean Platelet Volume 6.7 fL (7.4-10.4); Platelet Count 256 thou/uL (130-400); RBC Distribution Width 12.8 % (11.5-14.5); Red Blood Cell (RBC) Count 3.95 mill/uL (4.70-6.10)
[2021-05-23] MEDS ORDERED: Sodium Chloride 0.9% 500 ML ONE (17:45)
[2021-05-23 17:53] LABS: INR-International Normal Ratio 1.2; Prothrombin Time 15.3 sec (12.0-14.7)
[2021-05-23 17:54] LABS: PTT 31.4 sec (22.9-36.1)
[2021-05-23 17:58] LABS: ALT (SGPT) 6 U/L (8-55); AST (SGOT) 17 U/L (5-34); Albumin 3.4 g/dL (3.4-4.8); Alkaline Phosphatase 61 U/L (40-110); Anion Gap 11 mmol/L (10-20); BUN (Urea Nitrogen) 33 mg/dL (8.4-25.7); Calc. Creatinine Clearance 0 mL/min (70-130); Carbon Dioxide 24 mmol/L (23-31); Chloride 105 mmol/L (98-107); Globulin 2.8 g/dL (2.4-3.5); Glucose 165 mg/dL (83-110); Potassium 3.9 mmol/L (3.5-5.1); Protein, Total 6.2 g/dL (5.8-8.1); Sodium 136 mmol/L (136-145)
[2021-05-23 18:49] LABS: Bilirubin Negative (Negative); Blood, Urine Trace (Negative); Clarity Clear (Clear); Glucose, Urine (Dipstick) Negative (Negative); Ketone, Urine Trace mg/dL (Negative); Leukocyte Trace (Negative); Nitrite Negative (Negative); Protein, Urine (Dipstick) Negative (Neg-Trace); Specific Gravity, Urine 1.025 (1.005-1.030)
[2021-05-23 18:57] LABS: RBC/HPF 0-3 HPF (0-3); Squamous Epithelial 0-3 HPF (0-3); WBC/HPF 0-3 HPF (0-3)
[2021-05-23 18:58] LABS: Bacteria/HPF 1+ HPF (None Seen); Mucous/LPF Rare LPF (<2+); Yeast-Budding None Seen HPF (None Seen)
== END 2021-05-23 19:35 ==
LOC: NAV ERS 17:13
DX: R31.9 Hematuria, unspecified (principal); I11.0 Hypertensive heart disease with heart failure; I50.9 Heart failure, unspecified; E78.5 Hyperlipidemia, unspecified; E78.00 Pure hypercholesterolemia, unspecified; Z79.82 Long term (current) use of aspirin; Z79.899 Other long term (current) drug therapy
CPT/HCPCS: 80053; 81003; 81015; 85025; 85610; 85730; 87086; 99283; J7030

== ENCOUNTER 2021-10-25 16:04 | Emergency (ER) | payer MEDICARE, BC ==
[~2021-10-25 16:04] MED LIST changes: -Iopamidol 370 76% 100 ML VIAL ONE; +Sodium Chloride 0.9% 1,000 ML BAG ONE
[2021-10-25 17:15] LABS: #Basophils 0.1 thou/uL (0.0-0.2); #Eosinphils 0.2 thou/uL (0.0-0.7); #Lymphocytes 1.8 thou/uL (1.20-3.40); #Monocytes 0.7 thou/uL (0.11-0.59); #Neutrophils 4.4 thou/uL (1.40-6.50); %Basophils 1.1 % (0.0-1.0); %Monocytes 9.1 % (0.0-10.0); %Neutrophils 61.8 % (42.0-75.0); Hemoglobin 12.5 g/dL (14.0-18.0); Mean Corpuscular HGB CONC 32.3 g/dL (32.0-36.0); Mean Corpuscular Hemoglobin 32.3 pg (27.0-31.0); Mean Platelet Volume 7.1 fL (7.4-10.4); Platelet Count 233 thou/uL (130-400); RBC Distribution Width 12.6 % (11.5-14.5); Red Blood Cell (RBC) Count 3.87 mill/uL (4.70-6.10); White Blood Cell (WBC) Count 7.1 thou/uL (4.8-10.8)
[2021-10-25 17:36] LABS: ALT (SGPT) Less than 6 U/L (8-55); AST (SGOT) 14 U/L (5-34); Albumin 3.5 g/dL (3.4-4.8); Alkaline Phosphatase 56 U/L (40-110); Anion Gap 13 mmol/L (10-20); BUN (Urea Nitrogen) 25 mg/dL (8.4-25.7); Bilirubin, Total 1.9 mg/dL (0.2-1.2); Calc. Creatinine Clearance 0 mL/min (70-130); Calcium 8.8 mg/dL (7.8-10.44); Carbon Dioxide 22 mmol/L (23-31); Chloride 107 mmol/L (98-107); Globulin 3.1 g/dL (2.4-3.5); Glucose 121 mg/dL (83-110); Potassium 3.9 mmol/L (3.5-5.1); Protein, Total 6.6 g/dL (5.8-8.1); Sodium 138 mmol/L (136-145)
[2021-10-25] MEDS ORDERED: Sodium Chloride 0.9% 1,000 ML ONE (19:01)
[2021-10-25 19:28] LABS: Bilirubin Negative (Negative); Blood, Urine Negative (Negative); Clarity Clear (Clear); Glucose, Urine (Dipstick) Negative (Negative); Ketone, Urine 15 mg/dL (Negative); Leukocyte Negative (Negative); Nitrite Negative (Negative); Protein, Urine (Dipstick) Trace mg/dL (Neg-Trace); Specific Gravity, Urine 1.025 (1.005-1.030); Urobilinogen 0.2 mg/dL (Less than 2); pH, Urine 5.5 (5.0-9.0)
[2021-10-26 19:07] LABS: SARS-CoV-2 PCR by NAA Not Detected (NotDetected)
== END 2021-10-25 20:25 | disposition home or self-care (01) ==
LOC: NAV ERS 16:04
DX: J06.9 Acute upper respiratory infection, unspecified (principal); E86.0 Dehydration; I11.0 Hypertensive heart disease with heart failure; I50.9 Heart failure, unspecified; I48.91 Unspecified atrial fibrillation; E78.5 Hyperlipidemia, unspecified; E78.00 Pure hypercholesterolemia, unspecified; G20 Parkinson's disease; Z20.822 Contact with and (suspected) exposure to COVID-19; Z86.73 Personal history of transient ischemic attack (TIA), and cerebral infarction without residual deficits; Z79.899 Other long term (current) drug therapy; Z79.82 Long term (current) use of aspirin
CPT/HCPCS: 71045; 80053; 81003; 83605; 85025; 87804; J7050; U0003; U0005

== ENCOUNTER 2021-11-10 10:07 | Emergency (ER) | payer MEDICARE, BC ==
[2021-11-10 10:43] LABS: #Eosinphils 0.1 thou/uL (0.0-0.7); #Lymphocytes 1.6 thou/uL (1.20-3.40); #Monocytes 0.7 thou/uL (0.11-0.59); #Neutrophils 6.5 thou/uL (1.40-6.50); %Basophils 0.4 % (0.0-1.0); %Eosinophils 1.1 % (0.0-10.0); %Lymphocytes 17.4 % (21.0-51.0); %Monocytes 8.2 % (0.0-10.0); %Neutrophils 72.9 % (42.0-75.0); Hemoglobin 14.3 g/dL (14.0-18.0); Mean Corpuscular Hemoglobin 31.9 pg (27.0-31.0); Mean Corpuscular Volume 99.8 fL (78.0-98.0); Mean Platelet Volume 6.6 fL (7.4-10.4); Platelet Count 282 thou/uL (130-400); RBC Distribution Width 12.5 % (11.5-14.5); Red Blood Cell (RBC) Count 4.47 mill/uL (4.70-6.10)
[2021-11-10] MEDS ORDERED: Sodium Chloride 0.9% 1,000 ML ONE (10:47)
[2021-11-10] MEDS ORDERED: Ondansetron PF 4 MG/2 ML Vial ONE ×2 (10:47→11:15)
[2021-11-10 10:57] LABS: INR-International Normal Ratio 1.6; Prothrombin Time 18.8 sec (12.0-14.7)
[2021-11-10 10:58] LABS: PTT 39.6 sec (22.9-36.1)
[2021-11-10 11:41] LABS: ALT (SGPT) 6 U/L (8-55); AST (SGOT) 11 U/L (5-34); Albumin 4.2 g/dL (3.4-4.8); Alkaline Phosphatase 68 U/L (40-110); Anion Gap 14 mmol/L (10-20); BUN (Urea Nitrogen) 32 mg/dL (8.4-25.7); Bilirubin, Total 1.8 mg/dL (0.2-1.2); CK (CPK) 23 U/L (30-200); Calc. Creatinine Clearance 0 mL/min (70-130); Calcium 9.2 mg/dL (7.8-10.44); Carbon Dioxide 21 mmol/L (23-31); Chloride 104 mmol/L (98-107); Globulin 3.4 g/dL (2.4-3.5); Glucose 103 mg/dL (83-110); Lipase 24 U/L (8-78); Potassium 4.3 mmol/L (3.5-5.1); Protein, Total 7.6 g/dL (5.8-8.1); Sodium 135 mmol/L (136-145)
[2021-11-10] MEDS ORDERED: cefTRIAXone\\ROCEPHIN 1 GM VIAL ONE (12:20)
[2021-11-10] MEDS ORDERED: Sodium Chloride 0.9% 100 ML ONE (12:21)
[2021-11-10 12:29] LABS: Bilirubin Negative (Negative); Blood, Urine Negative (Negative); Clarity Clear (Clear); Glucose, Urine (Dipstick) Negative (Negative); Ketone, Urine Negative (Negative); Leukocyte Negative (Negative); Nitrite Negative (Negative); Protein, Urine (Dipstick) Negative (Neg-Trace); Specific Gravity, Urine 1.015 (1.005-1.030); Urobilinogen 0.2 mg/dL (Less than 2)
== END 2021-11-10 15:20 | disposition home or self-care (01) ==
LOC: NAV ERS 10:07
DX: J18.9 Pneumonia, unspecified organism (principal); R19.7 Diarrhea, unspecified; I48.91 Unspecified atrial fibrillation; I11.0 Hypertensive heart disease with heart failure; I50.9 Heart failure, unspecified; E78.5 Hyperlipidemia, unspecified; E78.00 Pure hypercholesterolemia, unspecified; G20 Parkinson's disease; Z86.73 Personal history of transient ischemic attack (TIA), and cerebral infarction without residual deficits; Z79.82 Long term (current) use of aspirin; Z79.899 Other long term (current) drug therapy
CPT/HCPCS: 36415; 70450; 71045; 80053; 81003; 82550; 83605; 83690; 84484; 85025; 85610; 85730; 87040; 87086; 87149; 93005; 96365; 96367; 96375; J0696; J1956; J2405; J3490; J7050

== ENCOUNTER 2022-01-19 15:57 | Inpatient (IN) | payer MEDICARE, BC ==
[2022-01-19] MEDS ORDERED: Acetaminophen 325 MG TAB PO PRN ×2 (21:52→21:56)
[2022-01-19] MEDS ORDERED: Sodium Chloride 0.65% Nasal 44 ML BOT EA NARE PRN (21:53)
[2022-01-19] MEDS ORDERED: Ondansetron PF 4 MG/2 ML Vial IVP PRN (21:53)
[2022-01-19] MEDS ORDERED: Artificial Tear Sol 15 ML BOT EA EYE PRN (21:53)
[2022-01-19] MEDS ORDERED: Bisacodyl 5 MG TAB PO PRN (21:53)
[2022-01-19] MEDS ORDERED: Promethazine HCl 25 MG SUPP PR PRN (21:53)
[2022-01-19] MEDS ORDERED: Guaifenesin DM 100-10/5 ML UDCUP PO PRN (21:53)
[2022-01-19] MEDS ORDERED: Senokot S 8.6-50 MG TAB PO PRN (21:53)
[2022-01-19] MEDS ORDERED: Bisacodyl 10 MG SUPP PR PRN (21:53)
[2022-01-19] MEDS ORDERED: Loperamide HCl 2 MG CAP PO PRN ×2 (21:53)
[2022-01-19] MEDS ORDERED: Cepastat Lozenges 1 LOZ PO PRN (21:53)
[2022-01-19] MEDS ORDERED: Calcium Carbonate 500 MG ChewTAB PO PRN (21:53)
[2022-01-19] MEDS ORDERED: Ondansetron ODT 4 MG TAB PO PRN (21:53)
[2022-01-19 22:48] LABS: Hemoglobin 12.1 g/dL (14.0-18.0); Mean Corpuscular HGB CONC 30.6 g/dL (32.0-36.0); Mean Platelet Volume 6.5 fL (7.4-10.4); Platelet Count 266 thou/uL (130-400); RBC Distribution Width 13.3 % (11.5-14.5); Red Blood Cell (RBC) Count 3.91 mill/uL (4.70-6.10); White Blood Cell (WBC) Count 6.2 thou/uL (4.8-10.8)
[2022-01-19 22:49] LABS: #Lymphocytes 1.8 thou/uL (1.20-3.40); #Neutrophils 3.6 thou/uL (1.40-6.50); %Eosinophils 3.6 % (0.0-10.0); %Lymphocytes 29.5 % (21.0-51.0); %Monocytes 7.7 % (0.0-10.0); %Neutrophils 58.2 % (42.0-75.0)
[2022-01-19 22:50] LABS: #Basophils 0.1 thou/uL (0.0-0.2); #Eosinphils 0.2 thou/uL (0.0-0.7); #Monocytes 0.5 thou/uL (0.11-0.59)
[2022-01-19 22:52] LABS: ALT (SGPT) Less than 6 U/L (8-55); AST (SGOT) 13 U/L (5-34); Albumin 3.5 g/dL (3.4-4.8); Alkaline Phosphatase 93 U/L (40-110); Anion Gap 15 mmol/L (10-20); BUN (Urea Nitrogen) 28 mg/dL (8.4-25.7); Bilirubin, Total 1.2 mg/dL (0.2-1.2); Calc. Creatinine Clearance 48 mL/min (70-130); Calcium 9.4 mg/dL (7.8-10.44); Carbon Dioxide 21 mmol/L (23-31); Chloride 105 mmol/L (98-107); Globulin 3.9 g/dL (2.4-3.5); Glucose 106 mg/dL (83-110); Potassium 4.4 mmol/L (3.5-5.1); Protein, Total 7.4 g/dL (5.8-8.1); Sodium 137 mmol/L (136-145)
[2022-01-19] MEDS: Sodium Chloride 0.9% 1,000 ML IV SCH (23:03)
[2022-01-19 23:31] LABS: Bilirubin Negative (Negative); Blood, Urine Trace (Negative); Clarity Cloudy (Clear); Glucose, Urine (Dipstick) Negative (Negative); Ketone, Urine Trace mg/dL (Negative); Leukocyte Small (Negative); Nitrite Positive (Negative); Protein, Urine (Dipstick) 100 mg/dL (Neg-Trace); pH, Urine 8.5 (5.0-9.0)
[2022-01-19 23:37] LABS: Bacteria/HPF 2+ HPF (None Seen); RBC/HPF 0-3 HPF (0-3); Squamous Epithelial 0-3 HPF (0-3); WBC/HPF Greater than 50 HPF (0-3)
[2022-01-20] MEDS ORDERED: Meropenem 1 GM in Sodium Chloride 0.9% 100 ML IVPB SCH ×2 (01:00→09:00)
[2022-01-20 04:08] LABS: SARS-CoV-2 NAA Rapid Test Not Detected (NotDetected)
[2022-01-20 07:55] LABS: #Eosinphils 0.1 thou/uL (0.0-0.7); #Lymphocytes 2.1 thou/uL (1.20-3.40); #Monocytes 0.7 thou/uL (0.11-0.59); #Neutrophils 3.4 thou/uL (1.40-6.50); %Basophils 0.7 % (0.0-1.0); %Eosinophils 1.5 % (0.0-10.0); %Monocytes 10.5 % (0.0-10.0); %Neutrophils 54.3 % (42.0-75.0); Hemoglobin 11.2 g/dL (14.0-18.0); Mean Corpuscular HGB CONC 30.4 g/dL (32.0-36.0); Mean Corpuscular Hemoglobin 30.6 pg (27.0-31.0); Mean Platelet Volume 6.2 fL (7.4-10.4); Platelet Count 252 thou/uL (130-400); RBC Distribution Width 13.4 % (11.5-14.5); Red Blood Cell (RBC) Count 3.66 mill/uL (4.70-6.10); White Blood Cell (WBC) Count 6.3 thou/uL (4.8-10.8)
[2022-01-20 07:57] LABS: ALT (SGPT) Less than 6 U/L (8-55); AST (SGOT) 10 U/L (5-34); Albumin 3.1 g/dL (3.4-4.8); Alkaline Phosphatase 75 U/L (40-110); Anion Gap 14 mmol/L (10-20); BUN (Urea Nitrogen) 24 mg/dL (8.4-25.7); Bilirubin, Total 1.4 mg/dL (0.2-1.2); Calc. Creatinine Clearance 50 mL/min (70-130); Calcium 8.9 mg/dL (7.8-10.44); Carbon Dioxide 21 mmol/L (23-31); Chloride 108 mmol/L (98-107); Globulin 3.5 g/dL (2.4-3.5); Glucose 107 mg/dL (83-110); Potassium 4.5 mmol/L (3.5-5.1); Protein, Total 6.6 g/dL (5.8-8.1); Sodium 138 mmol/L (136-145)
[2022-01-20] MEDS: Sodium Chloride 0.9% 1,000 ML IV SCH ×2 (08:31→17:37)
[2022-01-20] MEDS: Enoxaparin Sodium 40 MG/0.4 ML SYRINGE SC SCH (08:38)
[2022-01-20] MEDS: Midodrine HCl 5 MG TAB PO SCH (08:38)
[2022-01-20] MEDS: Digoxin 0.125 MG TAB PO SCH (08:38)
[2022-01-20] MEDS: Famotidine 20 MG TAB PO SCH ×2 (08:39→20:58)
[2022-01-20] MEDS: Famotidine/PF 20 mg/2ml Vial SLOW IVP SCH ×2 (08:39→21:05)
[2022-01-20] MEDS: Carbidopa/Levodopa 25-250 mg Tablet PO SCH ×4 (09:19→20:57)
[2022-01-20] MEDS ORDERED: Ondansetron ODT 4 MG TAB SL PRN (10:30)
[2022-01-20] MEDS: Meropenem 1 GM in Sodium Chloride 0.9% 100 ML IVPB SCH (20:57)
[2022-01-21] MEDS: Carbidopa/Levodopa 25-250 mg Tablet PO SCH ×5 (06:10→21:19)
[2022-01-21] MEDS: Sodium Chloride 0.9% 1,000 ML IV SCH ×3 (06:10→18:10)
[2022-01-21] MEDS: Digoxin 0.125 MG TAB PO SCH (08:21)
[2022-01-21] MEDS: Famotidine 20 MG TAB PO SCH ×2 (08:21→21:19)
[2022-01-21] MEDS: Midodrine HCl 5 MG TAB PO SCH (08:22)
[2022-01-21] MEDS: Meropenem 1 GM in Sodium Chloride 0.9% 100 ML IVPB SCH ×2 (08:22→21:18)
[2022-01-21] MEDS: Enoxaparin Sodium 40 MG/0.4 ML SYRINGE SC SCH (08:23)
[2022-01-21] MEDS: Famotidine/PF 20 mg/2ml Vial SLOW IVP SCH ×2 (08:35→21:19)
[2022-01-21 09:50] LABS: #Lymphocytes 1.5 thou/uL (1.20-3.40); #Monocytes 0.4 thou/uL (0.11-0.59); #Neutrophils 3.5 thou/uL (1.40-6.50); %Basophils 0.9 % (0.0-1.0); %Eosinophils 0.8 % (0.0-10.0); %Lymphocytes 26.9 % (21.0-51.0); %Neutrophils 63.5 % (42.0-75.0); Hemoglobin 9.7 g/dL (14.0-18.0); Mean Corpuscular Hemoglobin 30.6 pg (27.0-31.0); Mean Platelet Volume 5.6 fL (7.4-10.4); Platelet Count 230 thou/uL (130-400); RBC Distribution Width 13.8 % (11.5-14.5); Red Blood Cell (RBC) Count 3.17 mill/uL (4.70-6.10); White Blood Cell (WBC) Count 5.5 thou/uL (4.8-10.8)
[2022-01-21 09:53] LABS: ALT (SGPT) Less than 3 U/L (8-55); AST (SGOT) 10 U/L (5-34); Albumin 2.6 g/dL (3.4-4.8); Alkaline Phosphatase 59 U/L (40-110); Anion Gap 10 mmol/L (10-20); BUN (Urea Nitrogen) 16 mg/dL (8.4-25.7); Bilirubin, Total 1.2 mg/dL (0.2-1.2); Calc. Creatinine Clearance 57 mL/min (70-130); Calcium 8.1 mg/dL (7.8-10.44); Carbon Dioxide 23 mmol/L (23-31); Chloride 108 mmol/L (98-107); Globulin 2.8 g/dL (2.4-3.5); Glucose 124 mg/dL (83-110); Potassium 3.8 mmol/L (3.5-5.1); Protein, Total 5.4 g/dL (5.8-8.1); Sodium 137 mmol/L (136-145)
[2022-01-22] MEDS: Carbidopa/Levodopa 25-250 mg Tablet PO SCH ×5 (06:05→20:45)
[2022-01-22] MEDS: Sodium Chloride 0.9% 1,000 ML IV SCH ×3 (06:06→17:52)
[2022-01-22 06:25] VITALS: BMI 16.1
[2022-01-22] MEDS: Digoxin 0.125 MG TAB PO SCH (08:17)
[2022-01-22] MEDS: Enoxaparin Sodium 40 MG/0.4 ML SYRINGE SC SCH (08:17)
[2022-01-22] MEDS: Midodrine HCl 5 MG TAB PO SCH (08:17)
[2022-01-22] MEDS: Meropenem 1 GM in Sodium Chloride 0.9% 100 ML IVPB SCH ×2 (08:18→20:44)
[2022-01-22] MEDS: Famotidine 20 MG TAB PO SCH ×2 (08:21→20:44)
[2022-01-22] MEDS: Famotidine/PF 20 mg/2ml Vial SLOW IVP SCH ×2 (09:03→20:45)
[2022-01-22 10:10] LABS: #Basophils 0.1 thou/uL (0.0-0.2); #Eosinphils 0.1 thou/uL (0.0-0.7); #Lymphocytes 1.5 thou/uL (1.20-3.40); #Monocytes 0.4 thou/uL (0.11-0.59); #Neutrophils 4.4 thou/uL (1.40-6.50); %Basophils 0.8 % (0.0-1.0); %Lymphocytes 23.4 % (21.0-51.0); %Monocytes 6.4 % (0.0-10.0); %Neutrophils 67.4 % (42.0-75.0); Hemoglobin 11.8 g/dL (14.0-18.0); Mean Corpuscular HGB CONC 29.8 g/dL (32.0-36.0); Mean Corpuscular Hemoglobin 30.3 pg (27.0-31.0); Platelet Count 237 thou/uL (130-400); RBC Distribution Width 13.4 % (11.5-14.5); Red Blood Cell (RBC) Count 3.89 mill/uL (4.70-6.10); White Blood Cell (WBC) Count 6.5 thou/uL (4.8-10.8)
[2022-01-22 10:26] LABS: ALT (SGPT) Less than 6 U/L (8-55); AST (SGOT) 14 U/L (5-34); Alkaline Phosphatase 81 U/L (40-110); Anion Gap 15 mmol/L (10-20); BUN (Urea Nitrogen) 15 mg/dL (8.4-25.7); Bilirubin, Total 1.2 mg/dL (0.2-1.2); Calc. Creatinine Clearance 58 mL/min (70-130); Calcium 8.4 mg/dL (7.8-10.44); Carbon Dioxide 22 mmol/L (23-31); Chloride 104 mmol/L (98-107); Globulin 3.2 g/dL (2.4-3.5); Glucose 127 mg/dL (83-110); Potassium 3.9 mmol/L (3.5-5.1); Protein, Total 6.2 g/dL (5.8-8.1); Sodium 137 mmol/L (136-145)
[2022-01-23] MEDS: Sodium Chloride 0.9% 1,000 ML IV SCH (01:36)
[2022-01-23] MEDS: Carbidopa/Levodopa 25-250 mg Tablet PO SCH ×2 (06:17→08:47)
[2022-01-23 07:26] VITALS: BP 167/78; TEMP 98
[2022-01-23] MEDS: Famotidine 20 MG TAB PO SCH (08:46)
[2022-01-23] MEDS: Digoxin 0.125 MG TAB PO SCH (08:46)
[2022-01-23] MEDS: Midodrine HCl 5 MG TAB PO SCH (08:47)
[2022-01-23] MEDS: Enoxaparin Sodium 40 MG/0.4 ML SYRINGE SC SCH (08:47)
[2022-01-23] MEDS: Meropenem 1 GM in Sodium Chloride 0.9% 100 ML IVPB SCH (08:48)
[2022-01-23] MEDS: Famotidine/PF 20 mg/2ml Vial SLOW IVP SCH (08:48)
== END 2022-01-23 09:59 | disposition swing bed (61) | DRG 690 ==
LOC: NAV ACUTE 16:34
PROVIDERS: ADMIT Family Medicine; ATTEND Family Medicine
DX: N39.0 Urinary tract infection, site not specified (principal); I69.354 Hemiplegia and hemiparesis following cerebral infarction affecting left non-dominant side; Z16.24 Resistance to multiple antibiotics; I48.11 Longstanding persistent atrial fibrillation; I50.32 Chronic diastolic (congestive) heart failure; I11.0 Hypertensive heart disease with heart failure; G20 Parkinson's disease; R13.10 Dysphagia, unspecified; R53.81 Other malaise; Z20.822 Contact with and (suspected) exposure to COVID-19; C44.209 Unspecified malignant neoplasm of skin of left ear and external auricular canal; B96.4 Proteus (mirabilis) (morganii) as the cause of diseases classified elsewhere; E78.2 Mixed hyperlipidemia; Z79.01 Long term (current) use of anticoagulants; Z79.899 Other long term (current) drug therapy; Z90.49 Acquired absence of other specified parts of digestive tract
CPT/HCPCS: 36415; 80053; 81001; 82607; 85025; 87040; 87077; 87086; 87186; J1650; J2185; J3490; J7050; S0028; U0002

== ENCOUNTER 2022-01-23 10:48 | Inpatient (IN) | payer MEDICARE, BC ==
[2022-01-23 11:39] VITALS: BMI 16.0
[2022-01-23] MEDS ORDERED: Acetaminophen 325 MG TAB PO PRN ×2 (14:21→14:27)
[2022-01-23] MEDS ORDERED: Sodium Chloride 0.65% Nasal 44 ML BOT EA NARE PRN (14:25)
[2022-01-23] MEDS ORDERED: Loperamide HCl 2 MG CAP PO PRN ×2 (14:25)
[2022-01-23] MEDS ORDERED: Bisacodyl 10 MG SUPP PR PRN (14:25)
[2022-01-23] MEDS ORDERED: Cepastat Lozenges 1 LOZ PO PRN (14:25)
[2022-01-23] MEDS ORDERED: Promethazine HCl 25 MG SUPP PR PRN (14:25)
[2022-01-23] MEDS ORDERED: Calcium Carbonate 500 MG ChewTAB PO PRN (14:25)
[2022-01-23] MEDS ORDERED: Artificial Tear Sol 15 ML BOT EA EYE PRN (14:25)
[2022-01-23] MEDS ORDERED: Guaifenesin DM 100-10/5 ML UDCUP PO PRN (14:25)
[2022-01-23] MEDS: Carbidopa/Levodopa 25-250 mg Tablet PO SCH ×2 (17:26→21:14)
[2022-01-23] MEDS: Meropenem 1 GM in Sodium Chloride 0.9% 100 ML IVPB SCH (20:44)
[2022-01-23] MEDS: Famotidine 20 MG TAB PO SCH (20:44)
[2022-01-23] MEDS ORDERED: Melatonin 3 MG TAB PO PRN (22:23)
[2022-01-23] MEDS ORDERED: Nystatin Powder 15 GM BOT TOP SCH (22:30)
[2022-01-24] MEDS ORDERED: Haloperidol Lactate 5 MG/ML VIAL IM SCH (00:30)
[2022-01-24] MEDS: Carbidopa/Levodopa 25-250 mg Tablet PO SCH ×5 (05:54→21:15)
[2022-01-24 07:56] LABS: #Eosinphils 0.1 thou/uL (0.0-0.7); #Lymphocytes 1.7 thou/uL (1.20-3.40); #Monocytes 0.4 thou/uL (0.11-0.59); #Neutrophils 3.1 thou/uL (1.40-6.50); %Basophils 0.8 % (0.0-1.0); %Eosinophils 2.4 % (0.0-10.0); %Lymphocytes 31.7 % (21.0-51.0); %Monocytes 7.4 % (0.0-10.0); %Neutrophils 57.7 % (42.0-75.0); Hemoglobin 10.3 g/dL (14.0-18.0); Mean Corpuscular HGB CONC 30.2 g/dL (32.0-36.0); Mean Corpuscular Hemoglobin 30.7 pg (27.0-31.0); Mean Platelet Volume 6.2 fL (7.4-10.4); Platelet Count 225 thou/uL (130-400); RBC Distribution Width 13.1 % (11.5-14.5); Red Blood Cell (RBC) Count 3.35 mill/uL (4.70-6.10); White Blood Cell (WBC) Count 5.4 thou/uL (4.8-10.8)
[2022-01-24 08:08] LABS: ALT (SGPT) Less than 3 U/L (8-55); AST (SGOT) 14 U/L (5-34); Albumin 2.7 g/dL (3.4-4.8); Alkaline Phosphatase 67 U/L (40-110); Anion Gap 12 mmol/L (10-20); BUN (Urea Nitrogen) 12 mg/dL (8.4-25.7); Calc. Creatinine Clearance 61 mL/min (70-130); Calcium 8.2 mg/dL (7.8-10.44); Carbon Dioxide 24 mmol/L (23-31); Chloride 106 mmol/L (98-107); Globulin 2.9 g/dL (2.4-3.5); Glucose 130 mg/dL (83-110); Potassium 3.7 mmol/L (3.5-5.1); Protein, Total 5.6 g/dL (5.8-8.1); Sodium 138 mmol/L (136-145)
[2022-01-24] MEDS ORDERED: traMADol HCl 50 MG TAB PO PRN (08:15)
[2022-01-24] MEDS ORDERED: Acetaminophen 325 MG TAB PO PRN (08:16)
[2022-01-24] MEDS: Midodrine HCl 5 MG TAB PO SCH (08:25)
[2022-01-24] MEDS: Famotidine 20 MG TAB PO SCH ×2 (08:25→21:15)
[2022-01-24] MEDS: Atorvastatin Calcium 20 MG TAB PO SCH (08:25)
[2022-01-24] MEDS: Meropenem 1 GM in Sodium Chloride 0.9% 100 ML IVPB SCH ×2 (08:26→16:46)
[2022-01-24] MEDS: Digoxin 0.125 MG TAB PO SCH (08:26)
[2022-01-24] MEDS: Nystatin Powder 15 GM BOT TOP SCH ×2 (08:27→21:15)
[2022-01-24] MEDS: Bisacodyl 5 MG TAB PO PRN (14:35)
[2022-01-25] MEDS: Meropenem 1 GM in Sodium Chloride 0.9% 100 ML IVPB SCH ×3 (00:59→17:10)
[2022-01-25] MEDS: Carbidopa/Levodopa 25-250 mg Tablet PO SCH ×5 (05:43→21:51)
[2022-01-25] MEDS: Famotidine 20 MG TAB PO SCH ×2 (09:52→21:51)
[2022-01-25] MEDS: Atorvastatin Calcium 20 MG TAB PO SCH (09:52)
[2022-01-25] MEDS: Midodrine HCl 5 MG TAB PO SCH (09:55)
[2022-01-25] MEDS: Digoxin 0.125 MG TAB PO SCH (09:55)
[2022-01-25] MEDS: Nystatin Powder 15 GM BOT TOP SCH ×2 (10:16→21:52)
[2022-01-25] MEDS: Senokot S 8.6-50 MG TAB PO PRN (21:51)
[2022-01-26] MEDS: Meropenem 1 GM in Sodium Chloride 0.9% 100 ML IVPB SCH ×3 (00:45→17:02)
[2022-01-26] MEDS: Carbidopa/Levodopa 25-250 mg Tablet PO SCH ×5 (05:50→21:00)
[2022-01-26] MEDS: Midodrine HCl 5 MG TAB PO SCH (08:04)
[2022-01-26] MEDS: Famotidine 20 MG TAB PO SCH ×2 (08:05→21:00)
[2022-01-26] MEDS: Atorvastatin Calcium 20 MG TAB PO SCH (08:05)
[2022-01-26] MEDS: Nystatin Powder 15 GM BOT TOP SCH ×2 (08:06→21:00)
[2022-01-26] MEDS: Digoxin 0.125 MG TAB PO SCH (08:06)
[2022-01-26 13:09] LABS: #Eosinphils 0.1 thou/uL (0.0-0.7); #Lymphocytes 2.2 thou/uL (1.20-3.40); #Monocytes 0.5 thou/uL (0.11-0.59); #Neutrophils 5.9 thou/uL (1.40-6.50); %Basophils 0.4 % (0.0-1.0); %Eosinophils 1.1 % (0.0-10.0); %Lymphocytes 24.6 % (21.0-51.0); %Monocytes 5.9 % (0.0-10.0); %Neutrophils 68.1 % (42.0-75.0); Hemoglobin 10.5 g/dL (14.0-18.0); Mean Corpuscular HGB CONC 30.5 g/dL (32.0-36.0); Mean Corpuscular Hemoglobin 30.4 pg (27.0-31.0); Mean Corpuscular Volume 99.7 fL (78.0-98.0); Mean Platelet Volume 5.9 fL (7.4-10.4); Platelet Count 256 thou/uL (130-400); RBC Distribution Width 13.2 % (11.5-14.5); Red Blood Cell (RBC) Count 3.44 mill/uL (4.70-6.10); White Blood Cell (WBC) Count 8.7 thou/uL (4.8-10.8)
[2022-01-26 13:18] LABS: Anion Gap 11 mmol/L (10-20); BUN (Urea Nitrogen) 17 mg/dL (8.4-25.7); Calc. Creatinine Clearance 55 mL/min (70-130); Calcium 8.5 mg/dL (7.8-10.44); Carbon Dioxide 25 mmol/L (23-31); Chloride 103 mmol/L (98-107); Glucose 115 mg/dL (83-110); Potassium 3.8 mmol/L (3.5-5.1); Sodium 135 mmol/L (136-145)
[2022-01-26] MEDS: Bisacodyl 5 MG TAB PO PRN (13:57)
[2022-01-27] MEDS: Meropenem 1 GM in Sodium Chloride 0.9% 100 ML IVPB SCH ×3 (00:50→17:35)
[2022-01-27] MEDS: Carbidopa/Levodopa 25-250 mg Tablet PO SCH ×5 (05:17→20:45)
[2022-01-27] MEDS: Nystatin Powder 15 GM BOT TOP SCH ×2 (09:01→20:45)
[2022-01-27] MEDS: Famotidine 20 MG TAB PO SCH ×2 (09:02→20:45)
[2022-01-27] MEDS: Midodrine HCl 5 MG TAB PO SCH (09:02)
[2022-01-27] MEDS: Senokot S 8.6-50 MG TAB PO PRN (09:02)
[2022-01-27] MEDS: Atorvastatin Calcium 20 MG TAB PO SCH (09:02)
[2022-01-27] MEDS: Digoxin 0.125 MG TAB PO SCH (09:02)
[2022-01-27 22:51] LABS: SARS-CoV-2 PCR by NAA Not Detected (NotDetected)
[2022-01-28] MEDS: Meropenem 1 GM in Sodium Chloride 0.9% 100 ML IVPB SCH ×2 (01:10→08:35)
[2022-01-28] MEDS: Carbidopa/Levodopa 25-250 mg Tablet PO SCH ×5 (05:16→21:16)
[2022-01-28 06:55] LABS: #Eosinphils 0.2 thou/uL (0.0-0.7); #Lymphocytes 1.6 thou/uL (1.20-3.40); #Monocytes 0.5 thou/uL (0.11-0.59); #Neutrophils 4.6 thou/uL (1.40-6.50); %Basophils 0.4 % (0.0-1.0); %Eosinophils 3.3 % (0.0-10.0); %Lymphocytes 23.5 % (21.0-51.0); %Monocytes 6.5 % (0.0-10.0); %Neutrophils 66.4 % (42.0-75.0); Hemoglobin 10.6 g/dL (14.0-18.0); Mean Corpuscular HGB CONC 30.5 g/dL (32.0-36.0); Mean Corpuscular Hemoglobin 30.4 pg (27.0-31.0); Mean Corpuscular Volume 99.7 fL (78.0-98.0); Mean Platelet Volume 6.2 fL (7.4-10.4); Platelet Count 291 thou/uL (130-400); RBC Distribution Width 13.1 % (11.5-14.5); Red Blood Cell (RBC) Count 3.49 mill/uL (4.70-6.10); White Blood Cell (WBC) Count 6.9 thou/uL (4.8-10.8)
[2022-01-28 07:00] LABS: Anion Gap 13 mmol/L (10-20); BUN (Urea Nitrogen) 19 mg/dL (8.4-25.7); Calc. Creatinine Clearance 56 mL/min (70-130); Calcium 8.4 mg/dL (7.8-10.44); Carbon Dioxide 26 mmol/L (23-31); Chloride 104 mmol/L (98-107); Glucose 125 mg/dL (83-110); Sodium 139 mmol/L (136-145)
[2022-01-28] MEDS: Atorvastatin Calcium 20 MG TAB PO SCH (08:33)
[2022-01-28] MEDS: Midodrine HCl 5 MG TAB PO SCH (08:33)
[2022-01-28] MEDS: Famotidine 20 MG TAB PO SCH ×2 (08:33→21:15)
[2022-01-28] MEDS: Digoxin 0.125 MG TAB PO SCH (08:34)
[2022-01-28] MEDS: Nystatin Powder 15 GM BOT TOP SCH ×2 (08:35→21:16)
[2022-01-28 13:52] LABS: Bilirubin Negative (Negative); Blood, Urine Negative (Negative); Clarity Clear (Clear); Glucose, Urine (Dipstick) Negative (Negative); Ketone, Urine 15 mg/dL (Negative); Leukocyte Negative (Negative); Nitrite Negative (Negative); Protein, Urine (Dipstick) 30 mg/dL (Neg-Trace)
[2022-01-28 13:54] LABS: RBC/HPF 0-3 HPF (0-3)
[2022-01-28 13:55] LABS: Squamous Epithelial 0-3 HPF (0-3)
[2022-01-29] MEDS: Carbidopa/Levodopa 25-250 mg Tablet PO SCH ×5 (05:29→20:25)
[2022-01-29] MEDS: Midodrine HCl 5 MG TAB PO SCH (08:03)
[2022-01-29] MEDS: Atorvastatin Calcium 20 MG TAB PO SCH (08:03)
[2022-01-29] MEDS: Famotidine 20 MG TAB PO SCH ×2 (08:03→20:25)
[2022-01-29] MEDS: Nystatin Powder 15 GM BOT TOP SCH ×2 (08:04→20:26)
[2022-01-29] MEDS: Digoxin 0.125 MG TAB PO SCH (08:05)
[2022-01-30] MEDS: Carbidopa/Levodopa 25-250 mg Tablet PO SCH ×2 (05:05→10:13)
[2022-01-30] MEDS: Senokot S 8.6-50 MG TAB PO PRN (08:01)
[2022-01-30] MEDS: Atorvastatin Calcium 20 MG TAB PO SCH (08:01)
[2022-01-30] MEDS: Famotidine 20 MG TAB PO SCH (08:01)
[2022-01-30] MEDS: Midodrine HCl 5 MG TAB PO SCH (08:01)
[2022-01-30] MEDS: Digoxin 0.125 MG TAB PO SCH (08:02)
[2022-01-30] MEDS: Nystatin Powder 15 GM BOT TOP SCH (10:13)
[2022-01-30 13:43] LABS: #Eosinphils 0.4 thou/uL (0.0-0.7); #Lymphocytes 2.4 thou/uL (1.20-3.40); #Monocytes 0.6 thou/uL (0.11-0.59); #Neutrophils 3.3 thou/uL (1.40-6.50); %Basophils 0.6 % (0.0-1.0); %Eosinophils 6.3 % (0.0-10.0); %Lymphocytes 35.9 % (21.0-51.0); %Monocytes 8.4 % (0.0-10.0); %Neutrophils 48.9 % (42.0-75.0); Hemoglobin 10.8 g/dL (14.0-18.0); Mean Corpuscular HGB CONC 30.8 g/dL (32.0-36.0); Mean Corpuscular Hemoglobin 30.9 pg (27.0-31.0); Mean Platelet Volume 5.9 fL (7.4-10.4); Platelet Count 310 thou/uL (130-400); RBC Distribution Width 12.9 % (11.5-14.5); Red Blood Cell (RBC) Count 3.49 mill/uL (4.70-6.10); White Blood Cell (WBC) Count 6.6 thou/uL (4.8-10.8)
[2022-01-30 13:44] VITALS: BP 117/62; TEMP 95.8
[2022-01-30 13:48] LABS: Anion Gap 13 mmol/L (10-20); BUN (Urea Nitrogen) 16 mg/dL (8.4-25.7); Calc. Creatinine Clearance 60 mL/min (70-130); Calcium 8.4 mg/dL (7.8-10.44); Carbon Dioxide 26 mmol/L (23-31); Chloride 101 mmol/L (98-107); Glucose 97 mg/dL (83-110); Potassium 3.6 mmol/L (3.5-5.1); Sodium 136 mmol/L (136-145)
== END 2022-01-30 13:43 | disposition hospice, home (50) | DRG 690 ==
LOC: NAV ACUTE 10:48
PROVIDERS: ADMIT Family Medicine; ATTEND Family Medicine
DX: N39.0 Urinary tract infection, site not specified (principal); Z16.24 Resistance to multiple antibiotics; I69.354 Hemiplegia and hemiparesis following cerebral infarction affecting left non-dominant side; I50.32 Chronic diastolic (congestive) heart failure; I48.11 Longstanding persistent atrial fibrillation; R53.81 Other malaise; G20 Parkinson's disease; E78.2 Mixed hyperlipidemia; I11.0 Hypertensive heart disease with heart failure; B96.4 Proteus (mirabilis) (morganii) as the cause of diseases classified elsewhere; Z51.5 Encounter for palliative care; Z20.822 Contact with and (suspected) exposure to COVID-19; Z98.890 Other specified postprocedural states; Z79.899 Other long term (current) drug therapy; Z82.3 Family history of stroke; Z82.49 Family history of ischemic heart disease and other diseases of the circulatory system
CPT/HCPCS: 36415; 80048; 80053; 81001; 85025; 87086; J1630; J2185; J3490; U0003; U0005